=== PATIENT | female | born 1975 | race Native Hawaiian/Other Pacific Islander ===

== ENCOUNTER 2021-12-21 08:16 | Emergency (ER) | payer MEDICAID, SELFPAY ==
[2021-12-21 08:19] VITALS: BP 130/88; PULSE 98; O2SAT 98
[2021-12-21 08:23] VITALS: BP 136/93; PULSE 72; RESP 17; TEMP 36.6; O2SAT 100; BMI 28.1
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
[2021-12-21] MEDS: Ibuprofen 600 MG TABLET PO (09:00)
== END 2021-12-21 09:10 | disposition home or self-care (01) ==
PROVIDERS: Emergency Provider Emergency Medicine Emergency Medical Services; PCP Nurse Practitioner Primary Care
DX: S23.9XXA Sprain of unspecified parts of thorax, initial encounter (principal); S33.5XXA Sprain of ligaments of lumbar spine, initial encounter; V43.52XA Car driver injured in collision with other type car in traffic accident, initial encounter; Y93.9 Activity, unspecified; Y92.410 Unspecified street and highway as the place of occurrence of the external cause; Y99.9 Unspecified external cause status; Z79.899 Other long term (current) drug therapy
CPT/HCPCS: 99283

== ENCOUNTER 2022-01-15 10:29 | Emergency (ER) | payer MEDICAID, SELFPAY ==
[2022-01-15 10:36] VITALS: BP 126/87; PULSE 87; RESP 18; TEMP 36.9; O2SAT 98; BMI 25.0
--- NOTE | 2022-01-15 10:51 | ED_ITS ---
HPI - Back Pain/Injury General Chief Complaint: Back Pain/Injury Stated Complaint: Lower back pain Time Seen by Provider: 01/15/22 10:50 Source: patient Mode of arrival: ambulatory History of Present Illness HPI Narrative: 46-year-old female with no significant past medical history presenting to the ED complaining of acute low back pain greater on the right s/p picking up heavy laundry basket last night. Denies direct injury/trauma, fall, numbness, tingling, weakness, urine incontinence/retention, fever. Used lidocaine patch with little relief MD elicited complaint: back pain Pertinent past history: prior back pain Onset (ago): day(s) Related Data Previous Rx's Medication Instructions Recorded acetaminophen 500 mg tablet 1,000 mg PO Q6H PRN fever or pain 12/21/21 (Tylenol Extra Strength) #20 tabs cyclobenzaprine 10 mg tablet 10 mg PO TID PRN muscle pain or 12/21/21 spasm #20 tabs ibuprofen 600 mg tablet 600 mg PO Q6H PRN pain #30 tabs 12/21/21 acetaminophen 500 mg tablet 500 mg PO Q6H PRN fever or pain 01/15/22 (Tylenol Extra Strength) #14 tabs cyclobenzaprine 5 mg tablet 5 mg PO Q8H PRN pain (scale score 01/15/22 7-10) 5 days #14 tabs lidocaine 5 % topical patch 1 patch topical DAILY PRN pain #30 01/15/22 (Lidoderm) ea naproxen 500 mg tablet 500 mg PO BID PRN pain 10 days #20 01/15/22 tabs Allergies Allergy/AdvReac Type Severity Reaction Status Date / Time No Known Allergies Allergy Unverified 12/31/19 16:27 Review of Systems Review of Systems: Constitutional: No Fever, No Chills ENT/Mouth: No Ear Pain, No Nasal Congestion, No sore throat, No Rhinorrhea, No Swallowing Difficulty Cardiovascular: No Chest Pain, No SOB Respiratory: No Cough, No Sputum Gastrointestinal: No Nausea, No Vomiting, No Diarrhea, No Constipation, No Abdominal pain Genitourinary: No Dysuria, No Urinary Frequency, No Hematuria, No Urinary Incontinence/retention, No Flank Pain Musculoskeletal: + joint pain, No Myalgias, No Joint Swelling Skin: No Skin Lesions, No rash Neuro: No Weakness, No Numbness, No Paresthesias Yes all other systems are reviewed and are negative Constitutional: Constitutional: Reports as per HPI Neurologic: Denies Sensory deficit (Neuro) [facility] Past Medical History Attestation statement: The following information was validated with the patient. Surgical History Status post bunionectomy Family History Family History Father Cancer Mother Cancer Social History Social History Advance Directives: No Advance Directives Information Provided: No Physical Exam Vital Signs: Vital Signs: Last Vital Signs Temp 98.5 F 01/15/22 10:36 Pulse 87 01/15/22 10:36 Resp 18 01/15/22 10:36 BP 126/87 01/15/22 10:36 Pulse Ox 98 01/15/22 10:36 O2 Del Method 01/15/22 10:36 BMI result Body Mass Index 25.0 Const: General: cooperative, healthy appearing and no acute distress Orientation/consciousness: patient oriented x3 Limitations: no limitations HEENT: Head: Yes normal to inspection and Yes atraumatic Ears: hearing grossly normal bilaterally General nose exam: Normal external nose present Face and sinus: Yes normal facial exam Eyes: General: appearance normal, both eyes and all related structures EOM: EOMs intact bilaterally Neck: Neck: Yes normal visual inspection and Yes no meningeal signs Resp: Effort & Inspection: normal respiratory effort and no respiratory distress Cardio: Rate: regular rate Heart sounds: S1 normal heart sound present and S2 normal heart sound present GI: Inspection: Yes normal to inspection Palpation (GI): Soft to palpation, not firm, nontender, no guarding and not rigid : General: Yes no CVA tenderness Back/Spine/Pelvis: Other: No midline thoracic/lumbar spinous tenderness/step-off or deformity. + bilateral lumbar paraspinal/MSK tenderness to palpation > right Back: no CVA tenderness Skin: Rashes: no rashes Wounds: no wounds Neuro: Other: Strength intact throughout. No saddle anesthesia. Sensation intact to light touch. Neurovascular intact distally General: patient oriented x3, tone normal, moves all extremities, no meningeal signs and no focal motor deficits Gait exam (Neuro): Normal gait present Motor exam (neuro): 5/5 motor strength present throughout Sensory Exam: No Sensory deficit (Neuro) Extrem: General: Yes normal to inspection MDM - Back Pain/Injury MDM Narrative Medical decision making narrative: 6-year-old female with no significant past medical history presenting to the ED complaining of acute low back pain greater on the right s/p picking up heavy laundry basket last night. On exam VSS, NAD, nontoxic appearing, no midline spinous tenderness throughout, no red flag symptoms, pain reproducible on exam, ambulating with steady gait. Concern for MSK pain/strain/sciatica vs ? Herniat ed disc. Low suspicion for pyelonephritis/renal stone, epidural abscess or cauda equina Plan: Pain management, PCP follow-up Differential Diagnosis Differential diagnosis: Likely lumbar radiculopathy, sciatica and strain of lumbar region Medical Records Attestation: I reviewed the patient's medical records. Lab Data Attestation: I reviewed the patient's lab results. Discharge Plan Discharge Clinical Impression: Strain of lumbar region Patient Disposition: Home, Self-Care Instructions: Acute Low Back Pain (ED) Additional Instructions: Your pain is likely musculoskeletal Flexeril is a muscle relaxer, take at night as it makes you drowsy, do not drive, drink alcohol, or operate machinery while taking it Naproxen as an anti-inflammatory / pain medication, take with food Lidoderm patches are numbing patches, apply to painful area In addition take Tylenol at home If symptoms persist or worsen, pain becomes unbearable, you developed urinary retention or incontinence, or weakness return to the ED Prescriptions: New acetaminophen [Tylenol Extra Strength] 500 mg tablet 500 mg PO Q6H PRN (Reason: fever or pain) Qty: 14 0RF lidocaine [Lidoderm] 5 % adhesive patch,medicated 1 patch topical DAILY MDD remove after 12 hours PRN (Reason: pain) Qty: 30 0RF Rx Instructions: leave on most painful area for up to 12 hrs naproxen 500 mg tablet 500 mg PO BID PRN (Reason: pain) 10 Days Qty: 20 0RF cyclobenzaprine 5 mg tablet 5 mg PO Q8H PRN (Reason: pain (scale score 7-10)) 5 Days Qty: 14 0RF No Action acetaminophen [Tylenol Extra Strength] 500 mg tablet 1,000 mg PO Q6H PRN (Reason: fever or pain) Qty: 20 0RF ibuprofen 600 mg tablet 600 mg PO Q6H PRN (Reason: pain) Qty: 30 0RF cyclobenzaprine 10 mg tablet 10 mg PO TID PRN (Reason: muscle pain or spasm) Qty: 20 0RF Referrals: Brianna Perez, HEARING AIDE TECHNICIAN [Primary Care Provider] - 5 days
[2022-01-15] MEDS: Ketorolac Tromethamine 30 MG/ML VIAL IM (11:10)
[2022-01-15] MEDS: Cyclobenzaprine HCl 10 MG TABLET PO (11:11)
== END 2022-01-15 11:26 | disposition home or self-care (01) ==
PROVIDERS: Emergency Provider Emergency Medicine; PCP Nurse Practitioner Primary Care
DX: S39.012A Strain of muscle, fascia and tendon of lower back, initial encounter (principal); X50.0XXA Overexertion from strenuous movement or load, initial encounter; Y93.E2 Activity, laundry; Y92.018 Other place in single-family (private) house as the place of occurrence of the external cause; Y99.9 Unspecified external cause status
CPT/HCPCS: 96372; 99283; 99284; J1885

== ENCOUNTER 2023-05-26 11:08 | Emergency (ER) | payer MEDICAID, SELFPAY ==
--- NOTE | ~2023-05-26 | XR_ITS ---
EXAMINATION: XR ABDOMEN KUB CLINICAL INDICATION: Small bowel obstruction. Constipation. COMPARISON: None available. TECHNIQUE: 2 AP supine radiographs of the abdomen pelvis. FINDINGS: A prominent quantity of stool is present throughout the colon. No gross free intraperitoneal gas identified. The visualized lung bases are clear. Scattered pelvic phleboliths are incidentally noted. No pneumatosis intestinalis noted. No portal venous gas visualized. XR/XR KUB IMPRESSION: Marked colonic stool burden. No intestinal dilatation to specifically suggest obstruction. Findings may represent constipation.
[2023-05-26 11:29] VITALS: BP 121/94; PULSE 115; RESP 18; TEMP 35.8; O2SAT 98
--- NOTE | 2023-05-26 11:33 | ED.GENADULT ---
HPI - General Adult General Chief complaint: Abdominal Pain Stated complaint: Constipated Time Seen by Provider: 05/26/23 13:03 Source: patient Mode of arrival: ambulatory Limitations: no limitations History of Present Illness HPI narrative: 47-year-old female history of hypertension, depression, anxiety, thyroid cancer status post thyroidectomy on thyroid replacement who presents emergency department for evaluation severe constipation. Patient states that last month she developed constipation for the 1st time. She states that prior to that she had regular bowel movements. Patient was started on 2 medications by her PCP (stool softener and laxative) which have not help. Patient states that she has had no bowel movement since Saturday (4 days prior to evaluation). She states she is only passing very small hard john of stool. She states she feels very bloated and is having diffuse moderate to severe abdominal pain. She denied nausea or vomiting. She denied fever, chills, chest pain or shortness of breath. Patient has no abdominal surgery history. There has been no significant change in her medications or in her diet. Related Data Previous Rx's Medication Instructions Recorded cyclobenzaprine 10 mg tablet 5 mg (1/2 x 10 mg) PO BEDTIME PRN 01/15/22 muscle spasm #14 tabs lidocaine 5 % topical patch 1 patch topical DAILY PRN pain #15 01/15/22 ea naproxen 500 mg tablet 500 mg PO BID PRN pain #14 tabs 01/15/22 lactulose 10 gram/15 mL (15 mL) 10 g (15 mL) PO BID PRN 05/26/23 oral solution constipation #600 mL Allergies Allergy/AdvReac Type Severity Reaction Status Date / Time No Known Allergies Allergy Verified 05/26/23 11:29 Review of Systems Review of Systems: Yes all other systems are reviewed and are negative [facility] Past [facility] History [facility] Narrative: Social history: She denies tobacco, alcohol and drug use. Surgical History Status post bunionectomy Family History Family History Father Cancer Mother Cancer Social History Social History Advance Directives: No Advance Directives Information Provided: Yes Physical Exam ED Vital Signs: Vital Signs - 24 hr 05/26/23 11:29 05/26/23 15:40 Temperature 96.5 F L 98.9 F Pulse Rate 115 H 74 Respiratory Rate 18 16 Blood Pressure 121/94 H 130/76 Pulse Oximetry 98 99 Oxygen Delivery Method Room Air Room Air BMI result Body Mass Index 30.0 Vital signs revealed an elevated heart rate of 115 otherwise unremarkable Exam General: Awake, alert in no distress Head: Normocephalic, atraumatic EENT: PERRL, Lids normal, sclera normal, conjunctiva normal, nose normal , ears normal, throat without erythema or exudates Neck: Supple, no adenopathy Lung: breath sounds symmetric, no wheezing, rales or rhonchi Chest: symmetric movement, nontender Heart: regular rate and rhythm, normal S1, S2 no murmurs or rubs Abdomen: soft, distended, normoactive bowel sounds, moderate diffuse tenderness Rectal: Hard impacted stool, brown, Hemoccult-negative Back: no vertebral tenderness, no CVAT Neuro: Awake, alert, oriented, normal speech, moves all extremities symmetrically Psych: Pleasant, cooperative Course Course Course Narrative: RME; 47-year-old female presents to ED for constipation since Saturday. Patient states 1st time being constipated. Patient states some nausea. Patient denies any history of any surgery. Patient states in perimenopause. Patient last saw her menstruation 2 years ago. Labs, hCG, KUB ordered Procedures Rectal Disimpaction Time out performed rectal disimpaction: No Indication: fecal impaction Procedural Sedation: No Sedation/Analgesia: none Technique: manual disimpaction with gloved finger Result: significant stool output (After disimpaction and soapsuds enema) Patient Tolerated Procedure: well Complications: none Medical Decision Making Medical Decision Making [facility] Narrative: 47-year-old female history of hypertension, depression, anxiety, thyroid cancer status post thyroidectomy on thyroid replacement who presents emergency department for evaluation severe constipation. Patient has had no bowel movement in 4 days. Vital signs were normal. Physical examination did reveal abdominal distention with diffuse abdominal tenderness, rectal exam revealed hard impacted stool. Differential diagnosis: Includes was not limited to bowel obstruction, obstipation , constipation, diverticulitis, pancreatitis Following evaluation was ordered: CBC, CMP, quantitative beta-hCG, lipase, urinalysis Patient was treated with the following: Manual disimpaction, soapsuds enema 17:10 My independent interpretation patient's laboratory evaluation is as follows: CBC was normal. Glucose elevated 124. LFTs normal. Quantitative beta-hCG below detectable limits. At the end of my shift, the patient's enema has just been completed and she has not had a bowel movement yet, therefore the patient's care was turned over to my colleague, Dr. Lawson The patient had a significant bowel movement and is feeling better. Therefore she was discharged home. Admission/Observation Consideration of admission/observation: Escalation of care including admission/observation considered Lab Data MDM Lab Attestation statement: I reviewed the patient's lab results. 05/26/23 11:36 05/26/23 11:36 Labs: Lab Results 05/26/23 Range/Units 11:36 WBC 10.5 (4.8-10.8) X10*3/uL RBC 3.93 L (4.20-5.50) X10*6/uL Hgb 12.3 (12.0-16.0) g/dl Hct 36.1 L (37.0-47.0) % MCV 91.9 (80.0-98.0) fL MCH 31.3 (27.0-33.0) pg MCHC 34.1 (31.0-35.0) g/dl RDW 13.3 (11.0-16.0) % Plt Count 295 (160-400) X10*3/uL MPV 9.8 (9.4-12.3) fL Immature Gran % (Auto) 0.3 (0.0-0.4) % Neut % (Auto) 83.9 H (45-73) % Lymph % (Auto) 12.0 L (20-40) % [place] % (Auto) 3.3 (2-11) % Eos % (Auto) 0.2 (0-4) % Baso % (Auto) 0.3 (0-2) % Lymph # (Auto) 1.3 (1.2-4.9) X10*3/uL [place] # (Auto) 0.4 (0.1-1.2) X10*3/uL Eos # (Auto) 0.0 (0.0-0.4) X10*3/uL Baso # (Auto) 0.0 (0.0-0.2) X10*3/uL Abs Immat Gran (auto) 0.03 (0.00-0.03) X10*3/uL Absolute Neuts (auto) 8.8 H (2.0-8.3) x10*3/uL Absolute Nucleated RBC 0.000 (0.0-0.012) X10*3/uL Nucleated RBC % (auto) 0.0 (0.0-0.2) /100WBC Sodium 139 (135-145) mmol/L Potassium 4.0 (3.3-5.1) mmol/L Chloride 104 (96-108) mmol/L Carbon Dioxide 24 (22-29) mmol/L Anion Gap 15 (12-20) BUN 9 (9-16) mg/dL Creatinine 1.39 (0.5-1.4) mg/dL Estim Creat Clear Calc 59.8 Estimated GFR 41 Random Glucose 124 H (60-115) mg/dL Calcium 9.4 (8.4-10.2) mg/dL Total Bilirubin 0.4 (0.0-1.0) mg/dL AST 27 (5-31) U/L ALT 18 (0-31) U/L Alkaline Phosphatase 103 (39-117) U/L Total Protein 8.8 H (6.5-8.0) g/dL Albumin 4.5 (3.5-5.0) g/dL Lipase 22 (8-78) U/L Beta HCG, Quant < 2 mIU/mL Independent Interpretation I performed an independent interpretation of an: Plain X-Ray Interpretation: My independent interpretation of the patient's one-view KUB is as follows: Patient has stool in the right transverse and descending colon with a paucity of gas in the colon. Radiology Impression Discussion of test interpretation with radiology: I have reviewed the radiologist's reading. Radiologist Impression: XR KUB IMPRESSION: Marked colonic stool burden. No intestinal dilatation to specifically suggest obstruction. Findings may represent constipation. Dictated By: Avila Ziegler MD Chronic Conditions Patient?s care impacted by: Hypertension Discharge Plan Discharge Clinical Impression: Constipation, Fecal impaction in rectum Patient Disposition: Home, Self-Care Instructions: Constipation (ED) Additional Instructions: Your laboratory evaluation was unremarkable. Your x-ray was consistent with severe constipation. Your rectal exam revealed hard stool which was impacting rectum and making it difficult for you to move your bowels. You were treated with a soapsuds enema. Take Metamucil 1 tsp in 8 oz of water daily for the next 2 weeks. Continue your stool softener as prescribed by your primary care doctor. If you are feeling constipated, take lactulose 15 mL every 12 hours for 2-4 days Follow-up with your doctor in 2 days. Please return to the emergency department if your symptoms get worse or if you develop any symptoms that are concerning to you. Prescriptions: New lactulose 10 gram/15 mL (15 mL) solution 10 g PO BID PRN (Reason: constipation) Qty: 600 0RF No Action cyclobenzaprine 10 mg tablet 5 mg PO BEDTIME PRN (Reason: muscle spasm) Qty: 14 0RF lidocaine 5 % adhesive patch,medicated 1 patch topical DAILY PRN (Reason: pain) Qty: 15 0RF Rx Instructions: leave on most painful area for up to 12 hrs naproxen 500 mg tablet 500 mg PO BID PRN (Reason: pain) Qty: 14 0RF Rx Instructions: Take with food Interventions: ED Discharge Assessment Last Done: 05/26/23 17:33 Discharge Date/Time: 05/26/23 17:49
[2023-05-26 11:41] LABS: MANUAL DIFF FLAG NO
[2023-05-26 11:44] LABS: Basophils Percent Auto 0.3 % (0-2); Eosinophils Percent Auto 0.2 % (0-4); Hematocrit 36.1 % (37.0-47.0); Hemoglobin 12.3 g/dl (12.0-16.0); Imm Gran Abs Auto 0.03 X10*3/uL (0.00-0.03); Imm Gran Pct Auto 0.3 % (0.0-0.4); Lymphocytes Absolute Auto 1.3 X10*3/uL (1.2-4.9); Mean Corpuscular HGB Conc 34.1 g/dl (31.0-35.0); Mean Corpuscular Hemoglobin 31.3 pg (27.0-33.0); Mean Corpuscular Volume 91.9 fL (80.0-98.0); Mean Platelet Volume 9.8 fL (9.4-12.3); Monocytes Absolute Auto 0.4 X10*3/uL (0.1-1.2); Monocytes Percent Auto 3.3 % (2-11); Neutrophils Absolute Auto 8.8 x10*3/uL (2.0-8.3); Neutrophils Percent Auto 83.9 % (45-73); Platelet Count 295 X10*3/uL (160-400); Red Blood Count 3.93 X10*6/uL (4.20-5.50); Red Cell Distribution Width 13.3 % (11.0-16.0); White Blood Count 10.5 X10*3/uL (4.8-10.8)
[2023-05-26 12:02] LABS: Alanine Aminotransferase 18 U/L (0-31); Albumin Level 4.5 g/dL (3.5-5.0); Alkaline Phosphatase 103 U/L (39-117); Anion Gap 15 (12-20); Aspartate Amino Transferase 27 U/L (5-31); Bilirubin Total 0.4 mg/dL (0.0-1.0); Blood Urea Nitrogen 9 mg/dL (9-16); Calcium 9.4 mg/dL (8.4-10.2); Carbon Dioxide 24 mmol/L (22-29); Chloride 104 mmol/L (96-108); Creatinine Clr Calc Pharmacy 59.8; Estimated Glomerular Filt Rate 41; Glucose Random 124 mg/dL (60-115); Lipase 22 U/L (8-78); Sodium 139 mmol/L (135-145); Total Protein 8.8 g/dL (6.5-8.0)
[2023-05-26 12:03] LABS: HCG Quantitative < 2 mIU/mL
--- NOTE | 2023-05-26 15:23 | MHC.EDTECH ---
Brought patient a cup of ice water and saltine crackers.
[2023-05-26 15:40] VITALS: BP 130/76; PULSE 74; RESP 16; TEMP 37.2; O2SAT 99
--- NOTE | 2023-05-26 16:30 | PC.NURSE ---
Soapsud enema given as ordered, pt tolerated well. Bedside commode and wipes in close reach.
--- NOTE | 2023-05-26 17:47 | PC.NURSE ---
Postitive effect from somalcolms enema.
== END 2023-05-26 17:49 | disposition home or self-care (01) ==
PROVIDERS: Physician Assistant; Emergency Provider Emergency Medicine Emergency Medical Services; PCP Nurse Practitioner Primary Care
DX: K59.00 Constipation, unspecified (principal); Z79.899 Other long term (current) drug therapy
CPT/HCPCS: 36415; 74018; 80053; 83690; 84702; 85025; 99284

== ENCOUNTER 2023-08-09 10:27 | Emergency (ER) | payer MEDICAID, SELFPAY ==
--- NOTE | ~2023-08-09 | XR_ITS ---
EXAMINATION: XR CHEST CLINICAL INFORMATION: Shortness of breath and cough COMPARISON: 01/16/2019 TECHNIQUE: 2 views. Findings; Opacities the right base consistent with infiltrate. Minimal change at the left base. The mid-upper lung zones are grossly clear. The cardiac silhouette is comparable. Nonvisualization of the right heart border is similar to previous. The hilar regions do not appear pathologically enlarged. There is no effusion. XR/XR chest 2V IMPRESSION: Right greater than left lower lobe areas of infiltrate/atelectasis
--- NOTE | 2023-08-09 10:29 | ECG_ITS ---
Test Reason : chest pain Blood Pressure : / mmHG Vent. Rate : 092 BPM Atrial Rate : 092 BPM P-R Int : 172 ms QRS Dur : 080 ms QT Int : 352 ms P-R-T Axes : 037 053 038 degrees QTc Int : 435 ms Normal sinus rhythm Low voltage QRS Cannot rule out Inferior infarct , age undetermined Cannot rule out Anterior infarct , age undetermined Abnormal ECG No previous ECGs available Referred By: Generic ED Physician Electronically Signed By:SOL DEMPSEY MD
--- NOTE | 2023-08-09 11:19 | ED_ITS ---
HPI - General Adult General Chief complaint: Upper Respiratory Symptoms Stated complaint: CP Time Seen by Provider: 08/09/23 13:31 Source: patient Mode of arrival: ambulatory Limitations: no limitations History of Present Illness HPI narrative: note written already written in other note document. Related Data Previous Rx's ?Medication ?Instructions ?Recorded cyclobenzaprine 10 mg tablet 5 mg (1/2 x 10 mg) PO BEDTIME PRN 01/15/22 muscle spasm #14 tabs lidocaine 5 % topical patch 1 patch topical DAILY PRN pain #15 01/15/22 ea naproxen 500 mg tablet 500 mg PO BID PRN pain #14 tabs 01/15/22 lactulose 10 gram/15 mL (15 mL) 10 g (15 mL) PO BID PRN 05/26/23 oral solution constipation #600 mL amoxicillin 875 mg-potassium 1 tab PO Q12H 5 days #10 tabs 08/09/23 clavulanate 125 mg tablet benzonatate 200 mg capsule 200 mg PO TID PRN cough 5 days #15 08/09/23 caps doxycycline hyclate 100 mg capsule 100 mg PO BID 7 days #14 caps 08/09/23 Allergies Allergy/AdvReac Type Severity Reaction Status Date / Time No Known Allergies Allergy Verified 08/09/23 11:24 [facility] Past Medical History Surgical History Status post bunionectomy Family History Family History Father Cancer Mother Cancer Social History Social History Advance Directives: No Advance Directives Information Provided: No Physical Exam ED Vital Signs: Vital Signs - 24 hr 08/09/23 14:23 Temperature 97.9 F Pulse Rate 91 Respiratory Rate 18 Blood Pressure 143/92 H Pulse Oximetry 95 Oxygen Delivery Method Room Air BMI result Body Mass Index 31.2 Course Course Course Narrative: RME performed by Renetta Willis PA-C. Patient is a 47 year old assigned female at presenting to the emergency department with a cough and chest pain. Detailed physical exam and review of systems are deferred to the primary care provider. Labs, imaging, and swabs ordered. Patient placed back in the waiting room pending room availability and results. Patient was seen and dispositioned by Robbie Talley PA-C. Please refer to his note from 08/10/2023. Medical Decision Making Lab Data 08/09/23 12:24 08/09/23 12:24 Labs: Lab Results 08/09/23 Range/Units 12:24 WBC 6.6 (4.8-10.8) X10*3/uL RBC 3.73 L (4.20-5.50) X10*6/uL Hgb 11.6 L (12.0-16.0) g/dl Hct 35.2 L (37.0-47.0) % MCV 94.4 (80.0-98.0) fL MCH 31.1 (27.0-33.0) pg MCHC 33.0 (31.0-35.0) g/dl RDW 13.4 (11.0-16.0) % Plt Count 248 (160-400) X10*3/uL MPV 9.7 (9.4-12.3) fL Immature Gran % (Auto) 0.5 H (0.0-0.4) % Neut % (Auto) 62.7 (45-73) % Lymph % (Auto) 28.3 (20-40) % [place] % (Auto) 6.5 (2-11) % Eos % (Auto) 1.7 (0-4) % Baso % (Auto) 0.3 (0-2) % Lymph # (Auto) 1.9 (1.2-4.9) X10*3/uL [place] # (Auto) 0.4 (0.1-1.2) X10*3/uL Eos # (Auto) 0.1 (0.0-0.4) X10*3/uL Baso # (Auto) 0.0 (0.0-0.2) X10*3/uL Abs Immat Gran (auto) 0.03 (0.00-0.03) X10*3/uL Absolute Neuts (auto) 4.1 (2.0-8.3) x10*3/uL Absolute Nucleated RBC 0.000 (0.0-0.012) X10*3/uL Nucleated RBC % (auto) 0.0 (0.0-0.2) /100WBC PT 10.8 L (11.1-13.3) SEC INR 0.9 (0.9-1.1) APTT 33.4 (26.0-36.8) SEC Sodium 141 (135-145) mmol/L Potassium 4.0 (3.3-5.1) mmol/L Chloride 100 (96-108) mmol/L Carbon Dioxide 32 H (22-29) mmol/L Anion Gap 13 (12-20) BUN 7 L (9-16) mg/dL Creatinine 1.22 (0.5-1.4) mg/dL Estim Creat Clear Calc 67.2 Estimated GFR 48 Random Glucose 114 (60-115) mg/dL Calcium 9.9 (8.4-10.2) mg/dL Magnesium 2.2 (1.6-2.6) mg/dL Total Bilirubin 0.2 (0.0-1.0) mg/dL AST 18 (5-31) U/L ALT 14 (0-31) U/L Alkaline Phosphatase 94 (39-117) U/L Troponin I High Sens < 2.7 (<3.5-17.0) ng/L Total Protein 8.6 H (6.5-8.0) g/dL Albumin 4.4 (3.5-5.0) g/dL Influenza Type A (PCR) NEGATIVE (Negative) Influenza Type B (PCR) NEGATIVE (Negative) RSV RNA Qual (PCR) NEGATIVE (Negative) SARS-CoV-2 RNA (RT-PCR) NEGATIVE (Negative) Discharge Plan Discharge Clinical Impression: Upper respiratory infection Patient Disposition: Home, Self-Care Instructions: Community Acquired Pneumonia (ED) Additional Instructions: your x-ray shows pneumonia. You will be discharged with antibiotics and cough medication. Recommend follow-up with your primary care provider. Return to the ED for chest pain, shortness of breath, coughing up blood, chest pain / shortness of breath on inspiration and on exertion, leg swelling, calf pain, weakness, fever, chills, or any other concerning symptoms. Prescriptions: New doxycycline hyclate 100 mg capsule 100 mg PO BID 7 Days Qty: 14 0RF amoxicillin-pot clavulanate 875-125 mg tablet 1 tab PO Q12H 5 Days Qty: 10 0RF benzonatate 200 mg capsule 200 mg PO TID PRN (Reason: cough) 5 Days Qty: 15 0RF No Action cyclobenzaprine 10 mg tablet 5 mg PO BEDTIME PRN (Reason: muscle spasm) Qty: 14 0RF lidocaine 5 % adhesive patch,medicated 1 patch topical DAILY PRN (Reason: pain) Qty: 15 0RF Rx Instructions: leave on most painful area for up to 12 hrs naproxen 500 mg tablet 500 mg PO BID PRN (Reason: pain) Qty: 14 0RF Rx Instructions: Take with food lactulose 10 gram/15 mL (15 mL) solution 10 g PO BID PRN (Reason: constipation) Qty: 600 0RF Stand Alone Forms: Work/School Release Interventions: ED Discharge Assessment Last Done: 08/09/23 14:23 Discharge Date/Time: 08/09/23 14:26 Print Language: Sinhala
[2023-08-09 11:20] VITALS: BP 138/85; PULSE 90; RESP 16; TEMP 36.9; O2SAT 95; BMI 31.2
[2023-08-09 12:29] LABS: MANUAL DIFF FLAG NO
[2023-08-09 12:32] LABS: Basophils Percent Auto 0.3 % (0-2); Eosinophils Absolute Auto 0.1 X10*3/uL (0.0-0.4); Eosinophils Percent Auto 1.7 % (0-4); Hematocrit 35.2 % (37.0-47.0); Hemoglobin 11.6 g/dl (12.0-16.0); Imm Gran Abs Auto 0.03 X10*3/uL (0.00-0.03); Imm Gran Pct Auto 0.5 % (0.0-0.4); Lymphocytes Absolute Auto 1.9 X10*3/uL (1.2-4.9); Lymphocytes Percent Auto 28.3 % (20-40); Mean Corpuscular Hemoglobin 31.1 pg (27.0-33.0); Mean Corpuscular Volume 94.4 fL (80.0-98.0); Mean Platelet Volume 9.7 fL (9.4-12.3); Monocytes Absolute Auto 0.4 X10*3/uL (0.1-1.2); Monocytes Percent Auto 6.5 % (2-11); Neutrophils Absolute Auto 4.1 x10*3/uL (2.0-8.3); Neutrophils Percent Auto 62.7 % (45-73); Platelet Count 248 X10*3/uL (160-400); Red Blood Count 3.73 X10*6/uL (4.20-5.50); Red Cell Distribution Width 13.4 % (11.0-16.0); White Blood Count 6.6 X10*3/uL (4.8-10.8)
[2023-08-09 12:44] LABS: INTERNATIONAL NORM RATIO 0.9 (0.9-1.1); Prothrombin Time 10.8 SEC (11.1-13.3)
[2023-08-09 12:46] LABS: Partial Thromboplastin Time 33.4 SEC (26.0-36.8)
[2023-08-09 12:47] LABS: Alanine Aminotransferase 14 U/L (0-31); Albumin Level 4.4 g/dL (3.5-5.0); Alkaline Phosphatase 94 U/L (39-117); Anion Gap 13 (12-20); Aspartate Amino Transferase 18 U/L (5-31); Bilirubin Total 0.2 mg/dL (0.0-1.0); Blood Urea Nitrogen 7 mg/dL (9-16); Calcium 9.9 mg/dL (8.4-10.2); Carbon Dioxide 32 mmol/L (22-29); Chloride 100 mmol/L (96-108); Creatinine Clr Calc Pharmacy 67.2; Estimated Glomerular Filt Rate 48; Glucose Random 114 mg/dL (60-115); Magnesium 2.2 mg/dL (1.6-2.6); Sodium 141 mmol/L (135-145); Total Protein 8.6 g/dL (6.5-8.0)
[2023-08-09 12:56] LABS: Troponin-I High Sensitivity < 2.7 ng/L (<3.5-17.0)
[2023-08-09 13:09] LABS: Influenza A PCR NEGATIVE (Negative); Influenza B PCR NEGATIVE (Negative); Resp Syncy Virus RNA Qual PCR NEGATIVE (Negative); SARS COV2 PCR INHOUSE NEGATIVE (Negative)
--- NOTE | 2023-08-09 14:01 | ED_ITS ---
HPI - General Adult General Chief complaint: Upper Respiratory Symptoms Stated complaint: CP Time Seen by Provider: 08/09/23 13:31 Source: patient Mode of arrival: ambulatory Limitations: no limitations History of Present Illness HPI narrative: 47 yold female with pmh of asthma presents to the ED for coughing with white pelghm, chills, and pleurisy. patient denies any recent long travel, recent surgery, leg swelling, calf pain, coughing up blood, control use, or any history of PE Related Data Previous Rx's ?Medication ?Instructions ?Recorded cyclobenzaprine 10 mg tablet 5 mg (1/2 x 10 mg) PO BEDTIME PRN 01/15/22 muscle spasm #14 tabs lidocaine 5 % topical patch 1 patch topical DAILY PRN pain #15 01/15/22 ea naproxen 500 mg tablet 500 mg PO BID PRN pain #14 tabs 01/15/22 lactulose 10 gram/15 mL (15 mL) 10 g (15 mL) PO BID PRN 05/26/23 oral solution constipation #600 mL amoxicillin 875 mg-potassium 1 tab PO Q12H 5 days #10 tabs 08/09/23 clavulanate 125 mg tablet benzonatate 200 mg capsule 200 mg PO TID PRN cough 5 days #15 08/09/23 caps doxycycline hyclate 100 mg capsule 100 mg PO BID 7 days #14 caps 08/09/23 Allergies Allergy/AdvReac Type Severity Reaction Status Date / Time No Known Allergies Allergy Verified 08/09/23 11:24 Review of Systems 2 Review of Systems: coughing, chills, pleurisy, body aches Yes all other systems are reviewed and are negative PMF Past Medical History Surgical History Status post bunionectomy Family History Family History Father Cancer Mother Cancer Social History Social History Advance Directives: No Advance Directives Information Provided: No Physical Exam ED Vital Signs: Vital Signs - 24 hr 08/09/23 11:20 Temperature 98.4 F Pulse Rate 90 Respiratory Rate 16 Blood Pressure 138/85 Pulse Oximetry 95 Oxygen Delivery Method Room Air BMI result Body Mass Index 31.2 Const General: cooperative, healthy appearing, comfortable, no acute distress, well developed, alert, awake and Physically active Orientation/consciousness: oriented to person, oriented to place, oriented to time and patient oriented x3 HENMT Head: Yes normal to inspection, Yes No palpable skull fracture present, Yes normocephalic, Yes atraumatic and No abrasion Ears: hearing grossly normal bilaterally, external ears normal, TM's normal bilaterally, TM normal on the right, TM normal on the left, EAC's normal, mastoids normal and no periauricular adenopathy Throat: Yes posterior oropharynx normal, Yes tonsils normal and Yes uvula midline Eyes General: appearance normal, both eyes and all related structures Neck Neck: Yes normal visual inspection, Yes full ROM, Yes no lymphadenopathy, Yes no meningeal signs, Yes trachea midline, Yes supple, No anterior neck swelling and No tender Chest Chest palpation & inspection: normal inspection of the chest and normal palpation of entire chest wall Resp Effort & Inspection: normal respiratory effort and able to speak in complete sentences Auscultation: clear to auscultation bilaterally Cardio Jugular venous distension: no JVD Heart sounds: S1 normal heart sound present and S2 normal heart sound present GI Inspection: Yes normal to inspection Palpation (GI): Soft to palpation, not firm, nontender, no guarding and not rigid General: No CVA tenderness and Yes no CVA tenderness Back/Spine/Pelvis Back: no CVA tenderness, No CVA tenderness and No back tenderness Skin General skin exam: no rashes or lesions noted, elasticity normal and turgor normal Neuro General: oriented to person, oriented to place, oriented to time, patient oriented x3, gait normal, tone normal, moves all extremities, Normal light touch and pain sensation, no meningeal signs, no focal motor deficits, CN's II-XI intact bilaterally and normal sensation to monofilament Extrem Other: bilateral lower extremity negative for swelling, pitting edema, or calf tenderness General: Yes normal to inspection, Yes full ROM and Yes capillary refill normal Psych Appearance: grossly normal, well kempt and not disheveled Medical Decision Making Medical Decision Making MDM Narrative: 47-year-old female presents to ED for coughing, white phlegm cough, body aches, chills, and right-sided pleurisy, chest x-ray shows pneumonia. Labs baseline. EKG negative STEMI. Patient will be discharged with antibiotics informed to follow up with primary care provider. Patient explained worrisome signs. Differential Diagnosis Differential Diagnoses: The differential diagnosis associated with the presentation includes ( pneumonia, asthma, COVID, SARS, influenza) Lab Data MDM Lab Attestation statement: I reviewed the patient's lab results. 08/09/23 12:24 08/09/23 12:24 Labs: Lab Results 08/09/23 Range/Units 12:24 WBC 6.6 (4.8-10.8) X10*3/uL RBC 3.73 L (4.20-5.50) X10*6/uL Hgb 11.6 L (12.0-16.0) g/dl Hct 35.2 L (37.0-47.0) % MCV 94.4 (80.0-98.0) fL MCH 31.1 (27.0-33.0) pg MCHC 33.0 (31.0-35.0) g/dl RDW 13.4 (11.0-16.0) % Plt Count 248 (160-400) X10*3/uL MPV 9.7 (9.4-12.3) fL Immature Gran % (Auto) 0.5 H (0.0-0.4) % Neut % (Auto) 62.7 (45-73) % Lymph % (Auto) 28.3 (20-40) % [place] % (Auto) 6.5 (2-11) % Eos % (Auto) 1.7 (0-4) % Baso % (Auto) 0.3 (0-2) % Lymph # (Auto) 1.9 (1.2-4.9) X10*3/uL [place] # (Auto) 0.4 (0.1-1.2) X10*3/uL Eos # (Auto) 0.1 (0.0-0.4) X10*3/uL Baso # (Auto) 0.0 (0.0-0.2) X10*3/uL Abs Immat Gran (auto) 0.03 (0.00-0.03) X10*3/uL Absolute Neuts (auto) 4.1 (2.0-8.3) x10*3/uL Absolute Nucleated RBC 0.000 (0.0-0.012) X10*3/uL Nucleated RBC % (auto) 0.0 (0.0-0.2) /100WBC PT 10.8 L (11.1-13.3) SEC INR 0.9 (0.9-1.1) APTT 33.4 (26.0-36.8) SEC Sodium 141 (135-145) mmol/L Potassium 4.0 (3.3-5.1) mmol/L Chloride 100 (96-108) mmol/L Carbon Dioxide 32 H (22-29) mmol/L Anion Gap 13 (12-20) BUN 7 L (9-16) mg/dL Creatinine 1.22 (0.5-1.4) mg/dL Estim Creat Clear Calc 67.2 Estimated GFR 48 Random Glucose 114 (60-115) mg/dL Calcium 9.9 (8.4-10.2) mg/dL Magnesium 2.2 (1.6-2.6) mg/dL Total Bilirubin 0.2 (0.0-1.0) mg/dL AST 18 (5-31) U/L ALT 14 (0-31) U/L Alkaline Phosphatase 94 (39-117) U/L Troponin I High Sens < 2.7 (<3.5-17.0) ng/L Total Protein 8.6 H (6.5-8.0) g/dL Albumin 4.4 (3.5-5.0) g/dL Influenza Type A (PCR) NEGATIVE (Negative) Influenza Type B (PCR) NEGATIVE (Negative) RSV RNA Qual (PCR) NEGATIVE (Negative) SARS-CoV-2 RNA (RT-PCR) NEGATIVE (Negative) Independent Interpretation I performed an independent interpretation of an: Plain X-Ray Radiology Impression Discussion of test interpretation with radiology: I have reviewed the radiologist's reading. Independent Historian Clinical information obtained from an independent historian. History obtained from or confirmed by: Other (patient) External Record Review External record reviewed: Other (prior visits) Prescription Management I considered prescription management with: Pain Medication and Antibiotic Discharge Plan Discharge Clinical Impression: Upper respiratory infection Patient Disposition: Home, Self-Care Instructions: Community Acquired Pneumonia (ED) Additional Instructions: your x-ray shows pneumonia. You will be discharged with antibiotics and cough medication. Recommend follow-up with your primary care provider. Return to the ED for chest pain, shortness of breath, coughing up blood, chest pain / shortness of breath on inspiration and on exertion, leg swelling, calf pain, weakness, fever, chills, or any other concerning symptoms. Prescriptions: New doxycycline hyclate 100 mg capsule 100 mg PO BID 7 Days Qty: 14 0RF amoxicillin-pot clavulanate 875-125 mg tablet 1 tab PO Q12H 5 Days Qty: 10 0RF benzonatate 200 mg capsule 200 mg PO TID PRN (Reason: cough) 5 Days Qty: 15 0RF No Action cyclobenzaprine 10 mg tablet 5 mg PO BEDTIME PRN (Reason: muscle spasm) Qty: 14 0RF lidocaine 5 % adhesive patch,medicated 1 patch topical DAILY PRN (Reason: pain) Qty: 15 0RF Rx Instructions: leave on most painful area for up to 12 hrs naproxen 500 mg tablet 500 mg PO BID PRN (Reason: pain) Qty: 14 0RF Rx Instructions: Take with food lactulose 10 gram/15 mL (15 mL) solution 10 g PO BID PRN (Reason: constipation) Qty: 600 0RF Stand Alone Forms: Work/School Release Interventions: ED Discharge Assessment Last Done: 08/09/23 14:23 Discharge Date/Time: 08/09/23 14:26 Print Language: Mexican
[2023-08-09 14:23] VITALS: BP 143/92; PULSE 91; RESP 18; TEMP 36.6; O2SAT 95
== END 2023-08-09 14:26 | disposition home or self-care (01) ==
PROVIDERS: Physician Assistant Medical; Emergency Provider Student in an Organized Health Care Education/Training Program; PCP Nurse Practitioner Primary Care
DX: J06.9 Acute upper respiratory infection, unspecified (principal); R05.9 Cough, unspecified; R06.02 Shortness of breath; Z11.52 Encounter for screening for COVID-19; Z20.828 Contact with and (suspected) exposure to other viral communicable diseases
CPT/HCPCS: 0241U; 71046; 80053; 83735; 84484; 85025; 85610; 85730; 93005; 99283; 99284

== ENCOUNTER → 2023-08-09 10:29 | Outpatient (BNV) | payer MEDICAID, SELFPAY | PROVIDERS: PCP Nurse Practitioner Primary Care; Visit Provider Internal Medicine Cardiovascular Disease | DX: R07.9 Chest pain, unspecified (principal) | CPT/HCPCS: 93010 ==

== ENCOUNTER 2023-11-29 14:41 | Outpatient (REF) | payer MEDICAID, SELFPAY ==
--- NOTE | ~2023-11-29 | XR_ITS ---
EXAMINATION: XR RIBS, LEFT WITH CHEST XR FOOT, LEFT XR ANKLE, LEFT CLINICAL INFORMATION: Fall with pain. COMPARISON: Left foot study of June 13, 2011 TECHNIQUE: 4 views of the left ribs with PA chest, 3 view left ankle, and 3 view left foot. FINDINGS: LEFT FOOT: There appears to be a Lisfranc injury with fractures involving the bases of the second, third, and fourth metatarsals with some widening of space between the second and third metatarsals. There is large amount of soft tissue swelling present. There is question of an avulsion injury about the medial aspect of the first tarsometatarsal joint. Achilles calcaneal spur present. LEFT ANKLE: There is no evidence of acute fracture or dislocation of the left ankle. Left ankle mortise is intact. LEFT RIBS WITH CHEST: PA film of the chest does not demonstrate any evidence of acute parenchymal disease, pneumothorax, or pleural effusion. Heart normal size. No evidence of pulmonary edema. Status post previous neck surgery. No acute displaced left rib fracture is appreciated. XR/XR foot LT min 3V IMPRESSION: No acute parenchymal disease within the chest and no acute displaced left rib fracture are seen. No evidence of acute fracture or dislocation of the left ankle. Lisfranc injury of the left foot with fractures seen involving the second through fourth metatarsal bases and with avulsion injury about the first tarsometatarsal joint.
--- NOTE | ~2023-11-29 | XR_ITS ---
EXAMINATION: XR RIBS, LEFT WITH CHEST XR FOOT, LEFT XR ANKLE, LEFT CLINICAL INFORMATION: Fall with pain. COMPARISON: Left foot study of June 13, 2011 TECHNIQUE: 4 views of the left ribs with PA chest, 3 view left ankle, and 3 view left foot. FINDINGS: LEFT FOOT: There appears to be a Lisfranc injury with fractures involving the bases of the second, third, and fourth metatarsals with some widening of space between the second and third metatarsals. There is large amount of soft tissue swelling present. There is question of an avulsion injury about the medial aspect of the first tarsometatarsal joint. Achilles calcaneal spur present. LEFT ANKLE: There is no evidence of acute fracture or dislocation of the left ankle. Left ankle mortise is intact. LEFT RIBS WITH CHEST: PA film of the chest does not demonstrate any evidence of acute parenchymal disease, pneumothorax, or pleural effusion. Heart normal size. No evidence of pulmonary edema. Status post previous neck surgery. No acute displaced left rib fracture is appreciated. XR/XR ankle LT min 3V IMPRESSION: No acute parenchymal disease within the chest and no acute displaced left rib fracture are seen. No evidence of acute fracture or dislocation of the left ankle. Lisfranc injury of the left foot with fractures seen involving the second through fourth metatarsal bases and with avulsion injury about the first tarsometatarsal joint.
--- NOTE | ~2023-11-29 | XR_ITS ---
EXAMINATION: XR RIBS, LEFT WITH CHEST XR FOOT, LEFT XR ANKLE, LEFT CLINICAL INFORMATION: Fall with pain. COMPARISON: Left foot study of June 13, 2011 TECHNIQUE: 4 views of the left ribs with PA chest, 3 view left ankle, and 3 view left foot. FINDINGS: LEFT FOOT: There appears to be a Lisfranc injury with fractures involving the bases of the second, third, and fourth metatarsals with some widening of space between the second and third metatarsals. There is large amount of soft tissue swelling present. There is question of an avulsion injury about the medial aspect of the first tarsometatarsal joint. Achilles calcaneal spur present. LEFT ANKLE: There is no evidence of acute fracture or dislocation of the left ankle. Left ankle mortise is intact. LEFT RIBS WITH CHEST: PA film of the chest does not demonstrate any evidence of acute parenchymal disease, pneumothorax, or pleural effusion. Heart normal size. No evidence of pulmonary edema. Status post previous neck surgery. No acute displaced left rib fracture is appreciated. XR/XR ribs LT min 3V w CXR1V IMPRESSION: No acute parenchymal disease within the chest and no acute displaced left rib fracture are seen. No evidence of acute fracture or dislocation of the left ankle. Lisfranc injury of the left foot with fractures seen involving the second through fourth metatarsal bases and with avulsion injury about the first tarsometatarsal joint.
== END 2023-11-29 14:42 | disposition home or self-care (01) ==
LOC: HO.HHCX 14:41
PROVIDERS: Visit Provider Internal Medicine
DX: M79.672 Pain in left foot (principal); M25.572 Pain in left ankle and joints of left foot; R07.81 Pleurodynia
CPT/HCPCS: 71101; 73610; 73630

== ENCOUNTER 2024-10-13 14:26 | Emergency (ER) | payer MEDICAID, SELFPAY ==
--- NOTE | ~2024-10-13 | XR_ITS ---
EXAMINATION: XR ELBOW, LEFT CLINICAL INFORMATION: fall, pain COMPARISON: None available. TECHNIQUE: AP, lateral, and oblique views of the left elbow. FINDINGS: Anterior and posterior fat pads are visible residual question of a joint effusion. No fracture line is identified. XR/XR elbow LT 2V IMPRESSION: Suspected joint effusion, occult radial head fracture is not ruled out, but not demonstrated. If there is clinical concern, follow-up x-ray in 7-10 days. Electronically signed by: Linden Hood MD 10/13/2024 04:07 PM EDT
--- NOTE | ~2024-10-13 | XR_ITS ---
EXAMINATION: XR RIBS, LEFT CLINICAL INFORMATION: fall, pain COMPARISON: November 29, 2023 TECHNIQUE: 3 views of the left ribs were obtained. FINDINGS: There is focal airspace opacity near the left cardiac apex. Lungs are clear otherwise. No rib deformity, cortical step-off, or fracture line is demonstrated. XR/XR ribs LT min 3V w CXR1V IMPRESSION: Possible left basilar pneumonia or atelectasis. No rib fracture is demonstrated Electronically signed by: Linden Hood MD 10/13/2024 04:10 PM EDT
[2024-10-13 15:07] VITALS: BP 106/69; PULSE 78; RESP 16; TEMP 36.3; O2SAT 96; BMI 28.1
--- NOTE | 2024-10-13 15:07 | ED_ITS ---
HPI - Extremity Injury (Upper) General Chief Complaint: Fall Stated Complaint: L Arm Elbow Side Pain Fall 10/12/24 Time Seen by Provider: 10/13/24 16:21 Source: patient Mode of arrival: ambulatory History of Present Illness ED Provider: Britni ANG narrative: 48-year-old female presenting to the emergency department today for evaluation of injuries sustained from a slip and fall while at home last night. Patient states she was walking down her hallway to get her daughter a towel when she accidentally tripped on something causing her to fall forward catching herself on her left elbow and right hand. She sustained injury to her left side of her ribs as well as her left elbow. She is denying any paresthesias or weakness. She is right-hand dominant. She denies any head trauma or loss of conscious ness. She has not had any back pain neck pain no difficulty with moving her neck. While it does hurt for her to take a deep breath then movement is more tolerable and she does not feel short of breath. She noticed some bruising along her ribs. Reports no pain radiating to her shoulder or to her hand or wrist but it does hurt to move her left elbow. She denies prior trauma to this area in the past. She tried a topical bottom at home for her elbow which bothers her the most and it may have little effect. She is not on any anticoagulation MD complaint: injury to: left and elbow Related Data Previous Rx's ?Medication ?Instructions ?Recorded cyclobenzaprine 10 mg tablet 5 mg (1/2 x 10 mg) PO BED TIME PRN 01/15/22 muscle spasm #14 tabs lidocaine 5 % topical patch 1 patch topical DAILY PRN pain #15 01/15/22 ea naproxen 500 mg tablet 500 mg PO BID PRN pain #14 t abs 01/15/22 lactulose 10 gram/15 mL (15 mL) 10 g (15 mL) PO BID OH N 05/26/23 oral solution constipation #600 mL amoxicillin 875 mg-potassium 1 tab PO Q12H 5 days #10 tabs 08/09/23 clavulanate 125 mg tablet benzonatate 200 mg capsule 200 mg PO TID PRN cough 5 d ays #15 08/09/23 caps doxycycline hyclate 100 mg capsule 100 mg PO BID 7 day s #14 caps 08/09/23 cyclobenzaprine 10 mg tablet 10 mg PO BEDTIME PRN musc le spasm 10/13/24 #10 tabs meloxicam 15 mg tablet 15 mg PO DAILY #14 tabs 05/09 Allergies Allergy/AdvReac Type Severity Reaction Status Date / Time No Known Allergies Allergy Verified 10/13/24 15:09 Review of Systems Review of Systems: Yes all other systems are reviewed and are negative PMFSH Past Medical History Attestation statement: The following information was validated with the patient. Source: obtained from family and nursing notes reviewed Surgical History Status post bunionectomy Family History Family History Father Cancer Mother Cancer Physical Exam Vital Signs: Vital Signs: Last Vital Signs Temp 97.4 F 10/13/24 15:07 Pulse 78 10/13/24 15:07 Resp 16 10/13/24 15:07 BP 106/69 10/13/24 15:07 Pulse Ox 96 10/13/24 15:07 O2 Del Method Room Air 10/13/24 15:07 BMI result Body Mass Index 28.1 Const: Other: General: Appears in no acute distress, appears well nourished body habitus is [x], appears [stated age]. No septic or ill-appearing. Vitals reviewed normal, PMH/Social and Surgical hx reviewed including allergies and current medications. - reviewed for prior visits here and [not read/read as it pertains to similar CC]. Head: Normocephalic, no obvious trauma or skin lesions noted. Eyes: EOMI ENMT: moist oral mucosa Neck: trachea midline Cardiovascular: peripheral perfusion normal, Regular heart rate Respiratory: no respiratory distress Abdomen: nondistended Extremities: warm and moving without difficulty with exception to the left upper extremity. Patient has limited extension and flexion of the left elbow. She has tenderness to palpation of the lateral elbow with mild soft tissue swelling but no crepitus or obvious deformity. She is able to supinate and pronate but it does hurt do supination motion muscle testing was deferred for this reason. 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 No midline tenderness step-offs or deformities of entire spine moving neck in all directions without any difficulty Psych: Cooperative Neuro: Alert and oriented. General: cooperative, healthy appearing, comfortable, no acute distress and well developed Nutritional Appearance: obese Orientation/consciousness: patient oriented x3 Limitations: no limitations Neuro: General: patient oriented x3 Course Course Course Narrative: This is an RME performed by Genaro Serrano, MEETING MANAGER: Additional HPI, ROS, PE not included below will be deferred to primary provider. patient is a 48-year-old female who presents emergency department for evaluation. She mechanical slip and fall yesterday down 3-4 stairs with a resultant pain and injury to the left elbow in the left lateral ribs that exacerbates with movement and deep inspiration. Plan: XR elbow, XR ribs Medical Decision Making Medical Decision Making [facility] Narrative: Patient presents to ED today for evaluation of left sided rib and elbow pain. PORFIRIO is trip and fall yesterday. This is not work related. H and P as above. Patient is afebrile with stable vitals and well-appearing. ?History and physical as stated above. ?Patient is neurovascular intact in the affected extremity. ?X- rays were obtained to further evaluate. At this time no evidence of NVC to warrant further work up/ intervention or consult. They show no pneumothorax hemothorax rib fracture or obvious fracture howeverpossible occult radial neck fracture given that there is anterior posterior fat pads present. No evidence of NVC. Patient did not hit her head or experience any loss of consciousness she does not present with evidence of an ICH or concussion clinically. She is low risk for cervical spine fracture via nexus criteria imaging deferred for this. Patient?s left upper extremity?was placed in an arm sling. ?Discussed icing it, elevating and alternating ibuprofen and Tylenol for discomfort. ?Discussed that there is no significant improvement in the next 1 to 2 weeks to follow-up with an ?orthopedic clinic, information given. Discussed symptomatic treatment with the patient. ?Discussed return precautions. ?Patient verbalized understanding of the above plan and is in agreement with the above plan. ?The patient was discharged home in stable condition with return precautions. Differential Diagnosis Differential Diagnoses: The differential diagnosis associated with the presentation includes LUE dislocation, NVC LUE sprain PTX, rib fx contusion Admission/Observation Consideration of admission/observation: Escalation of care including admission/observation considered Patient would have been admitted to the hospital had her work up had any findings where hospital admission was appropriate and her clinical presentation warranted hospital admission. Independent Interpretation I performed an independent interpretation of an: Plain X-Ray Interpretation: Potential fracture radial neck even fat pads that are present but no obvious fracture no rib fracture no hemothorax no pneumothorax Radiology Impression Discussion of test interpretation with radiology: I have reviewed the radiologist's reading. Radiologist Impression: Potential for occult radial neck fracture. Atelectasis left lower lobe but no hemothorax pneumothorax or rib fracture Independent Historian Clinical information obtained from an independent historian. History obtained from or confirmed by: Other (aunt) Tests considered The following testing was considered but not selected: Had patient had a fall or loss of consciousness or unwitnessed trauma would have considered further imaging such as head CT and trauma scans of the thorax pelvis Prescription Management I considered prescription management with: Pain Medication Discharge Plan Discharge Clinical Impression: Contusion of rib on left side, Contusion of elbow, left, Fall, Effusion of left elbow Patient Disposition: Home, Self-Care Instructions: Elbow Fracture (ED), Swollen Joint (ED), Rib Contusion (ED) Additional Instructions: You were seen in the emergency department today following an event of a slip and fall while at home yesterday. He had imaging done today that does not show an obvious rib fracture or pneumothorax. Most likely bruising of the ribs this can take a proximally about a month to feel better use the pain patches that you have at home along with intermittent cool and warm compresses of the area you can alternate Tylenol and Motrin for discomfort. While taking meloxicam do not take Motrin or other NSAIDS at the same time. Use the muscle relaxant for nighttime. You also had imaging done of your left elbow which shows concern for potential fracture of the radial neck. You have been placed in a shoulder sling you can remove this while sleeping and while showering however tried to remove majority of the time until otherwise told by orthopedics. Same care instructions as above. Return to the emergency department should you experiencing any shortness of breath chest discomfort or new onset of weakness or paresthesias of your limb. Prescriptions: New meloxicam 15 mg tablet 15 mg PO DAILY Qty: 14 0RF cyclobenzaprine 10 mg tablet 10 mg PO BEDTIME PRN (Reason: muscle spasm) Qty: 10 0RF No Action cyclobenzaprine 10 mg tablet 5 mg PO BEDTIME PRN (Reason: muscle spasm) Qty: 14 0RF lidocaine 5 % adhesive patch,medicated 1 patch topical DAILY PRN (Reason: pain) Qty: 15 0RF Rx Instructions: leave on most painful area for up to 12 hrs naproxen 500 mg tablet 500 mg PO BID PRN (Reason: pain) Qty: 14 0RF Rx Instructions: Take with food lactulose 10 gram/15 mL (15 mL) solution 10 g PO BID PRN (Reason: constipation) Qty: 600 0RF doxycycline hyclate 100 mg capsule 100 mg PO BID 7 Days Qty: 14 0RF amoxicillin-pot clavulanate 875-125 mg tablet 1 tab PO Q12H 5 Days Qty: 10 0RF benzonatate 200 mg capsule 200 mg PO TID PRN (Reason: cough) 5 Days Qty: 15 0RF Referrals: [facility] [place] Group] - 2 days Referral Note: occult radial head fracture Stand Alone Forms: Work/School Release Print Language: Belarusian
[2024-10-13 17:03] VITALS: BP 106/69; PULSE 78; RESP 16; TEMP 36.3; O2SAT 96
== END 2024-10-13 17:04 | disposition home or self-care (01) ==
PROVIDERS: Emergency Provider Internal Medicine; PCP Nurse Practitioner Primary Care
DX: S50.02XA Contusion of left elbow, initial encounter (principal); S20.212A Contusion of left front wall of thorax, initial encounter; M25.422 Effusion, left elbow; X58.XXXA Exposure to other specified factors, initial encounter; Y93.9 Activity, unspecified; Y92.9 Unspecified place or not applicable; Y99.8 Other external cause status
CPT/HCPCS: 71101; 73070; 99282; 99283; 99284

== ENCOUNTER → 2024-10-13 15:09 | Outpatient (BNV) | payer MEDICAID, SELFPAY | PROVIDERS: Emergency Provider Internal Medicine; PCP Nurse Practitioner Primary Care; Visit Provider Radiology Diagnostic Radiology | DX: R07.81 Pleurodynia (principal); M25.522 Pain in left elbow; W19.XXXA Unspecified fall, initial encounter | CPT/HCPCS: 71101; 73070 ==

== ENCOUNTER 2024-10-23 08:42 | Outpatient (REF) | payer MEDICAID, SELFPAY ==
--- OUTSIDE RECORDS SUMMARY | 2024-10-23 08:49 | XMS_ITS | Encounter Summary ---
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 Role Phone Brianna Perez Primary Care Provider [phone] Reason for Visit * Reason Onset Date Comments Med Refill 10/19/2024 Encounter Details Date Type Department Care Team (Late st Contact Info) Description 10/19/2024 Refill [facility] [address] [place] [address] Shonna Reveles MD [address] [place] [address] Opioid type dependence, continuous (CMS/HCC) Social History Tobacco Use Types Packs/Day Years Used Date Smoking Tobacco: Every Day Cigarettes Passive Smoke Exposure: Current Smokeless Tobacco: Current Depression Answer Date Recorded Patient Health Questionnaire-9 Score 24 10/06/2024 Patient Health Questionnaire-9 Score 24 10/06/2024 Last PHQ-9: Questionnaire Data Not on file 0 10/06/2024 Housing Stability Answer Date Recorded What is your housing situation today? I have [facility] 09/17/[address] you li ve. Do you have problems with any of the following? None of the above 09/17/2024 Food Insecurity Answer Date Recorded Within the past 12 months, y ou worried that your food would run out before you got money to buy more: Never True 09/17/2024 Within the past 12 months,th e food you bought just didn't last and you didn't have enough money to get more: Never True 08/2024 Transportation Answer Date Recorded In the past 12 months, has l ack of transportation kept you from medical appts, meetings, work or from getting things needed for daily living? No 09/17/2024 Utilities Answer Date Recorded In the past 12 months, has t he electric, gas, oil or water company threatened to shut off services in your home? No 09/17/2024 Depression Answer Date Recorded Patient Health Questionnaire-2 Score 6 10/06/2024 Internet Access Answer Date Recorded Internet Access Q1 No 09/17/2024 Internet Access Q2 Not on file 09/17/2024 Comments No Sex and Gender Information Value Date Recorded Sex Assigned at Female 02/12/2022 10:17 AM EDT Legal Sex Female 10:17 AM EDT Gender Identity Female 02/12/2022 10:17 AM EDT Sexual Orientation Straight 02/12/2022 10 :17 AM EDT documented as of this encounter Plan of Treatment Upcoming Encounters Date Type Department Care Team (Late st Contact Info) Description 10/23/2024 11:00 AM EDT Clinical Support [address] [address] Max Garvey RN [address] [place] [phone] 10/29/2024 2:00 PM EDT Office Visit [address] [address] Shonna Reveles MD [address] [place] [phone] 11/05/2024 3:15 PM EDT Office Visit [address] [address] Shonna Reveles MD [address] [place] [phone] 11/27/2024 10:00 AM EDT Clinical Support [address] [address] Katie Dixon, RN [address] [place] [phone] 12/15/2024 11:30 AM EDT Office Visit [address] [place] [address] Brianna Perez ANP [address] [place] [address] documented as of this encounter Goals Goal Patient Goal Type Associated Problems Recent Progress Patient-Stated? 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
== END 2024-10-23 08:43 | disposition home or self-care (01) ==
LOC: HO.HOSX 08:42
DX: Z13.89 Encounter for screening for other disorder (principal)

== ENCOUNTER 2024-10-30 12:48 | Outpatient (AMB) | payer MEDICAID, SELFPAY ==
--- OUTSIDE RECORDS SUMMARY | 2024-10-30 12:51 | XMS_ITS | Clinical Summary ---
Author Organization [employer] Address [address] [facility] [address] [place] [address] Care Team Providers Care Integrity Analyst Name Role Phone Fred Dykes CHE Primary Care Provider [phone] Allergies No known active allergies Medications * This document contains information received from the source organization and may not represent a complete record from that organization. albuterol (Proventil HFA) 108 (90 Base) MCG/ACT inhalerIndication s:Smoker INHALE 2 PUFFS BY MOUTH EVERY 4 TO 6 HOURS NEEDED FOR WHEEZING OR SHORTNESS OF BREATH 6.7 g 1 023 Active cholecalciferol (Vitamin D-3) 50 MCG (1999 UT) capsuleIndication s:Vitamin D deficiency take 1 Capsule by Oral route every day 90 capsule 023 Active albuterol (Ventolin HFA) 108 (90 Base) MCG/ACT inhalerIndication s:Wheezing INHALE 2 PUFFS BY MOUTH EVERY 4 TO 6 HOURS NEEDED FOR WHEEZING OR SHORTNESS OF BREATH 18 g 1 023 Active docusate sodium (Colace) 100 MG capsuleIndication s:Constipation, unspecified constipation type TAKE 1 CAPSULE BY MOUTH TWICE DAILY 180 capsule 023 Active senna (Senokot) 8.6 MG tabletIndications :Other constipation TAKE 1 TO 2 TABLETS BY MOUTH EVERY EVENING FOR CONSTIPATION 180 tablet 024 Active levothyroxine (Synthroid, Levoxyl) 200 MCG tabletIndications :Postoperative hypothyroidism TAKE 1 TABLET BY MOUTH EVERY MORNING ON AN EMPTY STOMACH 90 tablet 024 Active lactulose (Chronulac) 10 GM/15ML solution 024 Active acetaminophen (Tylenol) 500 MG tabletIndications :Closed fracture of left foot with routine healing, subsequent encounter Take 2 tablets (1,000 mg) by mouth every 6 (six) hours if needed for moderate pain or fever for up to 25 doses. 50 tablet 024 Active nicotine (Nicoderm CQ) 14 MG/24HR patchIndications: Tobacco dependence Place 1 patch on the skin 1 (one) time each day at the same time. 42 patch 024 Active nicotine (Nicoderm CQ) 7 MG/24HR patchIndications: Tobacco dependence Place 1 patch on the skin 1 (one) time each day at the same time. 14 patch 024 Active nicotine polacrilex (Commit) 4 MG lozengeIndication s:Tobacco dependence Dissolve 1 lozenge (4 mg) in the mouth every 2 (two) hours if needed for smoking cessation. 100 lozenge 024 Active Blood Pressure kitIndications:Es sential hypertension 1 each 2 times daily. 1 kit 024 2024 Active oxyCODONE (Roxicodone) 5 MG immediate release tabletIndications :Closed fracture of left foot with routine healing, subsequent encounter Take 1 tablet (5 mg) by mouth every 6 (six) hours if needed for severe pain. 20 tablet 024 Active prazosin (Minipress) 2 MG capsuleIndication s:Nightmares TAKE 1 CAPSULE BY MOUTH EVERY DAY AT BEDTIME 90 capsule 1 025 Active hydroCHLOROthiazi de (Microzide) 12.5 MG capsuleIndication s:Essential hypertension TAKE 1 CAPSULE BY MOUTH EVERY DAY 90 capsule 025 Active hydrOXYzine HCl (Atarax) 25 MG tablet Take 2 tablets (50 mg) by mouth every 8 (eight) hours if needed for anxiety. 6 tablet 025 2024 Active cloNIDine (Catapres) 0.1 MG tablet Take 2 tablets (0.2 mg) by mouth at bedtime for 2 days. 4 tablet 025 Active Buprenorphine HCl-Naloxone HCl (Suboxone) 8-2 MG SL filmIndications:U ncomplicated opioid dependence (CMS/HCC) Place 2 Film under the tongue Once per day for 14 days. 28 Film 025 Active clonazePAM (KlonoPIN) 1 MG tabletIndications :Anxiety TAKE 1 TABLET BY MOUTH EVERY DAY NEEDED FOR ANXIETY Do not start before October 21, 2024. 28 tablet 025 Active QUEtiapine (SEROquel) 50 MG tabletIndications :Mood disorder (CMS/HCC) Take 1 tablet (50 mg) by mouth in the morning. Do not start before October 21, 2024. 30 tablet 025 Active QUEtiapine (SEROquel) 300 MG tabletIndications :Mood disorder (CMS/HCC) Take 1 tablet (300 mg) by mouth at bedtime. Do not start before October 21, 2024. 30 tablet 025 Active buprenorphine-nal oxone (Suboxone) 12-3 MG per sublingual filmIndications:O pioid type dependence, continuous (CMS/HCC) Place 1 Film under the tongue every 12 (twelve) hours for 7 days. 14 Film Active QUEtiapine (SEROquel) 300 MG tabletIndications :Mood disorder (CMS/HCC) Take 1 tablet (300 mg) by mouth at bedtime. 30 tablet 025 2024 Discontinued(R eorder (will not trigger notification to Pharmacy)) QUEtiapine (SEROquel) 50 MG tabletIndications :Mood disorder (CMS/HCC) Take 1 tablet (50 mg) by mouth in the morning. 30 tablet 025 2024 Discontinued(R eorder (will not trigger notification to Pharmacy)) clonazePAM (KlonoPIN) 1 MG tabletIndications :Anxiety TAKE 1 TABLET BY MOUTH EVERY DAY NEEDED FOR ANXIETY Do not start before September 25, 2024. 28 tablet 025 2024 Discontinued(R eorder (will not trigger notification to Pharmacy)) buprenorphine-nal oxone (Suboxone) 12-3 MG per sublingual filmIndications:O pioid type dependence, continuous (CMS/HCC) Place 1 Film under the tongue every 12 (twelve) hours for 7 days. 14 Film 025 2024 Discontinued(R eorder (will not trigger notification to Pharmacy)) buprenorphine-nal oxone (Suboxone) 12-3 MG per sublingual filmIndications:O pioid type dependence, continuous (CMS/HCC) Place 1 Film under the tongue every 12 (twelve) hours for 7 days. 14 Film 025 2024 Discontinued(R eorder (will not trigger notification to Pharmacy)) Active Problems Problem Noted Date Diagnosed Date HELGA (generalized anxiety disorder) 10/06/2024 Opioid use disorder 10/06/2024 Severe episode of recurrent major depressive disorder, without psychotic features 10/06/2024 Long-term current use of benzodiazepine 07/18/19 25 Tobacco dependence 12/13/2023 Acute left ankle pain 11/29/2023 Assessment & Plan (11/29/2023 2:37 PM EDT): Start ibuprofen tomorrow Today acetaminophen, Toradol, elevate left foot, rest and apply ice Left foot pain 11/29/2023 Rib pain on left side 11/29/2023 Sprain of anterior talofibular ligament of left ankle 11/29/2023 Assessment & Plan (11/29/2023 2:35 PM EDT): Crutches will be prescribe today Family history of malignant neoplasm of thyroid 03/15/2022 Anemia 07/17/2018 Essential hypertension 07/17/2018 Prediabetes 07/17/2018 Pure hyperglyceridemia 07/17/2018 Serum creatinine raised 07/17/2018 Vitamin D deficiency 07/17/2018 Mood disorder 11/09/2015 Postoperative hypothyroidism 11/09/2015 Encounters * This document contains information received from the source organization and may not represent a complete record from that organization. Date Type Department Care Team Description 10/19/2024 Refill [facility] MEDICINE [address] [place] [address] Shonna Reveles MD Opioid type dependence, continuous (CMS/HCC) 10/15/2024 2:15 PM EDT Clinical Support [facility] [address] [place] [address] Max Garvey RN Uncomplicated opioid dependence (CMS/HCC) (Primary Dx) 10/15/2024 Orders Only [facility] [address] [place] [address] Fred Dykes ANP 10/15/2024 Refill [facility] [address] [facility] [place] [address] Max Garvey RN Anxiety; Mood disorder (CMS/HCC) 10/15/2024 Travel 10/14/2024 Telephone [facility] [address] [facility] [place] [address] Fred Dykes ANP Referral 10/14/2024 Travel 10/13/2024 Orders Only [facility] External Provider, [facility] 10/13/2024 Refill [facility] [address] [facility] [place] [address] Shonna Reveles MD Opioid type dependence, continuous (CMS/HCC) 10/08/[address] [address] Shonna Reveles MD 10/08/2024 Travel 10/02/2024 Travel 10/02/2024 Telephone [facility]S [address] [place] [address] Katie Dixon RN EN[employer]EVEL [employer]ER 09/29/[address] [address] Shonna Reveles MD Opioid type dependence, continuous (CMS/HCC) 09/28/2024 1:00 PM EDT Clinical Support [address] [address] Max Garvey RN Uncomplicated opioid dependence (CMS/HCC) 09/28/2024 11:00 AM EDT Telemedicine [address] [address] Fred Dykes ANP Uncomplicated opioid dependence (CMS/HCC) (Primary Dx); Anxiety; Long-term current use of benzodiazepine; Essential hypertension; Mood disorder (CMS/HCC); Tobacco dependence; Postoperative hypothyroidism; Prediabetes 09/28/2024 Travel 09/25/2024 Refill [facility] MED[facility]INE [address] [place] [phone] Max Garvey RN Opioid type dependence, continuous (CMS/HCC) 09/24/2024 1:45 PM EDT Office Visit [address] [address] Shonna Reveles MD Opioid type dependence, continuous (CMS/HCC) (Primary Dx); Mood disorder (CMS/HCC) 09/24/2024 Orders Only [facility] [address] [place] [address] Fred Dykes ANP 09/24/2024 Refill [facility] [address] [place] [address] Katie Dixon, MECHELLE Anxiety 09/24/[address] [address] Fred Dykes ANP Med Refill 09/24/2024 Travel 09/18/2024 10:30 AM EDT Clinical Support [address] [address] Max Garvey RN Opioid dependence, uncomplicated (CMS/HCC) [F11.20] 09/18/[address] [address] Shonna Reveles MD Uncomplicated opioid dependence (CMS/HCC) 09/18/2024 Travel 09/17/2024 2:45 PM EDT Office Visit [address] [address] Shonna Reveles MD Uncomplicated opioid dependence (CMS/HCC) (Primary Dx) 09/17/2024 1:00 PM EDT Office Visit [address] [address] Sayda Prince, MECHELLE Opioid use 09/17/2024 Travel 08/25/2024 Travel 08/25/2024 Telephone [facility] [address] [place] [address] Fred Dykes ANP 08/25/2024 Refill [facility] [address] [place] [address] Fred Dykes ANP Essential hypertension; Anxiety from Last 3 Months Immunizations Immunization Administration Dates Next Due Hep B, adult 11/09/2015,01/26/2011,05/02/2010 Influenza injectable quadriv alent IIV4 with preservative 12/28/2016 Influenza injectable quadriv alent preservative free 07/17/2018,04/26/2016 Influenza, IIV3, injectable 01/13/2014, 1 MMR 01/16/2011,05/05/2010 TD (adult), 2 Lf tetanus tox oid, preservative free, adsorbed 07/26/2023 Tdap 05/02/2010 Varicella 05/02/2010 Family History Medical History Relation Name Comments Cancer Mother thyroid cancer Mental illness Mother Bipolar d/o Mental illness Mother's Sister Depression Other Hypertension Other Mental illness Other Relation Name Status Comments Mother Mother's Sister Other Social History Tobacco Use Types Packs/Day Years Used Date Smoking Tobacco: Every Day Cigarettes Passive Smoke Exposure: Current Smokeless Tobacco: Current Tobacco Cessation:Ready to Q uit: No; Counseling Given: Not Answered Depression Answer Date Recorded Patient Health Questionnaire-9 [...] Orientation Straight 02/12/2022 10 :17 AM EDT Last Filed Vital Signs Vital Sign Reading Time Taken Comments Blood Pressure 125/80 09/17/2024 2:09 PM EDT Pulse 68 09/17/2024 2:09 PM EDT Temperature 36.7 C (98.1 F) 09/17/2024 2:09 PM EDT Respiratory Rate 20 09/17/2024 2:09 PM EDT Oxygen Saturation 95% 12/13/2023 2:55 PM EDT Inhaled Oxygen Concentration - - Weight 87.1 kg (192 lb) 07/26/2023 1:20 PM EDT Height 170.2 cm (5' 7 ) 07/26/2023 1:20 PM EDT Body Mass Index 30.07 07/26/2023 1:20 PM EDT Plan of Treatment Upcoming Encounters Date Type Department Care Team (Late st Contact Info) Description 11/05/2024 3:15 PM EDT Office Visit [address] [address] Shonna Reveles MD [address] [place] [phone] 11/12/2024 2:45 PM EDT Office Visit [address] [address] Shonna Reveles MD [address] [place] [phone] 11/27/2024 10:00 AM EDT Clinical Support [address] [address] Katie Dixon, MECHELLE [address] [place] [address] 12/15/2024 11:30 AM EDT Office Visit [address] [address] Fred Dykes ANP [address] [place] [phone] Health Maintenance Due Date Last Done Comments CT Colonography 1975 Colonoscopy 1977 Colorectal Cancer Screening 1975 FIT DNA/Cologuard 1977 FIT 1977 FOBT 1975 HIV Screening 1975 Lipid Panel 1975 Sigmoidoscopy 1977 Family Planning (PISQ) 1992 Hepatitis C Screening 12/09/1995 Pneumococcal Vaccine: Pediatrics (0 to 5 Years) and At-Risk Patients (6 to 49) Years (1 of 2 - PCV) 1996 Pap Smear 1998 Cervical Cancer Screening 12/09/2007 HPV/Cotest 12/09/2007 Mammogram 2017 COVID-19 Vaccine ( season) 2023 Diabetes: Hemoglobin A1C 07/25/2024 07/26/2023 Influenza Vaccine (#1) 2024 9, 12/28/2016, 04/26/2016, Additional history exists Depression Monitoring 04/07/2025 10/06/2024, 025 Alcohol/Substance Use Screening 09/17/2025 09/17/2024 SDOH Screening 09/17/2025 09/17/2024 Disability Screening 09/28/2025 09/28/2024 Tobacco Screening 09/28/2025 09/28/2024 Zoster Vaccines (1 of 2) 12/09/2027 DTaP/Tdap/Td Vaccines (3 - Td or Tdap) 07/25/2033 07/26/2023, 05/02/2010 RSV Patients and Patients Aged 60 years or older (1 - 1-dose 75+ series) 2052 Hepatitis B Vaccines Completed 11/09/2015, 01/26/2011, 05/02/2010 HIB Vaccines Aged Out No longer eligi ble based on patient's age to complete this topic HPV Vaccines Aged Out No longer eligi ble based on patient's age to complete this topic Hepatitis A Vaccines Aged Out No long er eligible based on patient's age to complete this topic IPV Vaccines Aged Out No longer eligi ble based on patient's age to complete this topic Meningococcal B Vaccine Aged Out No l onger eligible based on patient's age to complete this topic Meningococcal Vaccine Aged Out No cinthia joe eligible based on patient's age to complete this topic RSV under 20 months Aged Out No longe r eligible based on patient's age to complete this topic Rotavirus Vaccines Aged Out No longer eligible based on patient's age to complete this topic Goals Goal Patient Goal Type Associated Problems Recent Progress Patient-Stated? Author Take your medication every day Lifestyle No Max Garvey, airfield engineer officer Procedure Name Priority Date/Time Associated Diagnosis Comments POCT TOMAS-14 URINE DRUG SCREEN Routine 10/15/2024 10:51 AM EDT Uncomplicated opioid dependence (CMS/HCC) XR RIBS 3 VIEWS LEFT W CHEST Routine 10/13/2024 3:45 PM EDT XR ELBOW 1-2 VIEWS LEFT Routine 10/13/2024 2:58 PM EDT POCT TOAMS-14 URINE DRUG SCREEN Routine 09/17/2024 2:12 PM EDT Uncomplicated opioid dependence (CMS/HCC) POCT GLYCATED HEMOGLOBIN, TOTAL Routine 07/26/2023 1:32 PM EDT Hyperglycemia from Last 3 Months or Most Recently Relevant to Health Maintenance Results * (ABNORMAL) POCT TOMAS-14 Urine Drug Screen (10/15/2024 10:51 AM EDT) Only the most recent of2 resultswithin the time period is included. THC Negative Negative Cocaine Screen, Urine Positive(A) Negative Opiate Screen, Urine Positive(A) Negative Methamphetamine Screen Urine Negative Negative Amphetamine Screen, Urine Negative Negative Benzodiazepines Screen, Urine Positive(A) Negative Barbiturate Screen, Urine Negative Negative Methadone Screen, Urine Negative Negative Buprenophine Screen, Urine Positive(A) Negative TCA, Urine Negative Negative MDMA Urine Negative Negative ng/mL Oxycodone Screen, Urine Negative Negative Phencyclidine (PCP), Urine Negative Negative Fentanyl, Urine Positive(A) Negative Urine Urine specimen obtained by clean catch procedure / Unknown 10/15/2024 10:51 AM EDT us Chito Perez MD POINT OF CARE TEST ENTER/EDIT OR DERABLES Final Result * XR Ribs 3 Views Left w/ Chest (10/13/2024 3:45 PM EDT) Anatomical Region Laterality Modality Radiographic Radha ging 10/13/2024 3:45 PM EDT Narrative 10/13/2024 4:14 PM EDT [address] [address] XRay Report Signed Patient: Ivelisse Chung MR#: [id number] : 1975 Acct:[id number] Age/Sex: 48 / F ADM Date: 10/13/24 Loc: .ED Attending Dr: Ordering Physician: Corina Serrano CNP Date of Service: 10/13/24 Procedure(s): XR ribs LT min 3V w CXR1V Accession Number(s): [id number] cc: Corina Serrano TOWER CLIMBER; FRED DYKES NP EXAMINATION: XR RIBS, LEFT CLINICAL INFORMATION: fall, pain COMPARISON: November 29, 2023 TECHNIQUE: 3 views of the left ribs were obtained. FINDINGS: There is focal airspace opacity near the left cardiac apex. Lungs are clear otherwise. No rib deformity, cortical step-off, or fracture line is demonstrated. XR/XR ribs LT min 3V w CXR1V IMPRESSION: Possible left basilar pneumonia or atelectasis. No rib fracture is demonstrated Electronically signed by: Linden Hood MD 10/13/2024 04:10 PM EDT Dictated By: Linden Hood MD Signed By: <Electronically signed by Linden Hood MD in OV> 10/13/24 1610 DD/ 1545 TD/TT: 10/13/24 1600 Poll Watcher: Procedure Note Donotgurinderinterpreter, Image - 10/13/[address] [address] XRay Report Signed Patient: Ivelisse ChungMR#: [id number] : 1975Acct:[id number] Age/Sex: 48 / FADM Date: 10/13/24 Loc: HO.ED Attending Dr: Ordering Physician: Corina Serrano CNP Date of Service: 10/13/24 Procedure(s): XR ribs LT min 3V w CXR1V Accession Number(s): [id number] cc: Corina Serrano CNP; FRED DYKES NP EXAMINATION: XR RIBS, LEFT CLINICAL INFORMATION: fall, pain COMPARISON: November 29, 2023 TECHNIQUE: 3 views of the left ribs were obtained. FINDINGS: There is focal airspace opacity near the left cardiac apex. Lungs are clear otherwise. No rib deformity, cortical step-off, or fracture line is demonstrated. XR/XR ribs LT min 3V w CXR1V IMPRESSION: Possible left basilar pneumonia or atelectasis. No rib fracture is demonstrated Electronically signed by: Linden Hood MD 10/13/2024 04:10 PM EDT Dictated By: Linden Hood MD Signed By: <Electronically signed by Linden Hood MD in OV> 10/13/24 1610 DD/ 1545 TD/TT: 10/13/24 1600 Poll Watcher: [facility] External Provider IMG XR PROCEDURES Final Result * XR Elbow 1-2 Views Left (10/13/2024 2:58 PM EDT) Anatomical Region Laterality Modality Upper Extremities, Elbow Left Radiogr aphic Imaging 10/13/2024 2:58 PM EDT Narrative 10/13/2024 4:10 PM EDT [address] [address] XRay Report Signed Patient: Ivelisse Chung MR#: [id number] : 1975 Acct:[id number] Age/Sex: 48 / F ADM Date: 10/13/24 Loc: HO.ED Attending Dr: Ordering Physician: Corina eSrrano CNP Date of Service: 10/13/24 Procedure(s): XR elbow LT 2V Accession Number(s): [id number] cc: Corina Serrano CNP; FRED DYKES [employer] EXAMINATION: XR ELBOW, LEFT CLINICAL INFORMATION: fall, pain COMPARISON: None available. TECHNIQUE: AP, lateral, and oblique views of the left elbow. FINDINGS: Anterior and posterior fat pads are visible residual question of a joint effusion. No fracture line is identified. XR/XR elbow LT 2V IMPRESSION: Suspected joint effusion, occult radial head fracture is not ruled out, but not demonstrated. If there is clinical concern, follow-up x-ray in 7-10 days. Electronically signed by: Linden Hood MD 10/13/2024 04:07 PM EDT Dictated By: Linden Hood MD Signed By: <Electronically signed by Linden Hood MD in OV> 10/13/24 1607 DD/ 1458 TD/TT: 10/13/24 1600 Poll Watcher: Procedure Note Donotuseinterpreter, Image - 10/13/[address] [address] XRay Report Signed Patient: Abilio Chung#: [id number] : 1975Acct:[id number] Age/Sex: 48 / FADM Date: 10/13/24 Loc: .ED Attending Dr: Ordering Physician: Corina Serrano CNP Date of Service: 10/13/24 Procedure(s): XR elbow LT 2V Accession Number(s): [id number] cc: Corina Serrano CNP; FRED DYKES [employer] EXAMINATION: XR ELBOW, LEFT CLINICAL INFORMATION: fall, pain COMPARISON: None available. TECHNIQUE: AP, lateral, and oblique views of the left elbow. FINDINGS: Anterior and posterior fat pads are visible residual question of a joint effusion. No fracture line is identified. XR/XR elbow LT 2V IMPRESSION: Suspected joint effusion, occult radial head fracture is not ruled out, but not demonstrated. If there is clinical concern, follow-up x-ray in 7-10 days. Electronically signed by: Linden Hood MD 10/13/2024 04:07 PM EDT RP Dictated By: Linden Hood MD Signed By: <Electronically signed by Linden Hood MD in OV> 10/13/24 1607 DD/ 1458 TD/TT: 10/13/24 1600 Poll Watcher: [facility] External Provider IMG XR PROCEDURES Final Result * POCT HGB A1C (07/26/2023 1:32 PM EDT) Hemoglobin A1C 5.9 4.0 - 6.0 % QC Media Lot # [id number] Lot# Expiration Date [id number] Blood 07/26/2023 1:32 PM EDT Fred Dykes ANP POINT OF CARE TEST ENTER/EDIT OR DERABLES Final Result from Last 3 Months or Most Recently Relevant to Health Maintenance Insurance C3 Care Teams Integrity Analyst Relationship Specialty Start Date End Date Fred Dykes ANP [address] [place] [id number] PCP - General Family Medicine 06/22/21
--- NOTE | 2024-10-30 13:28 | A.OFFVIS_ITS ---
Vital Signs 10/30/24 13:35 Height 5 ft 8 in Weight 185 lb BMI 28.1 Intake Visit Reasons: FC-L radial head fracture-DOI 10/12/24 Intake Note: Ivelisse is a 48 year old right hand dominant female who presents today for an ER follow up of left radial head fracture, DOI 10/12/24. Patient had a slip and fall down the third step when she was going to do her laundry. She presented to [facility] ER, x-rays were taken and placed in a arm sling. Patient reports ongoing pain and her most discomfort comes at night. At times she has numbness. Finds no relief with Advil. Allergies No Known Allergies Allergy (Verified 10/30/24 13:46) Medication List - Last Reconciled 11/02/24 by Genaro Villagran PA-C amoxicillin-pot clavulanate 875-125 mg 1 tab PO Q12H 5 days benzonatate 200 mg PO TID PRN 5 days buprenorphine-naloxone 8-2 mg (Suboxone) 2 film sublingual DAILY clonazepam 1 mg PO DAILY PRN cyclobenzaprine 5 mg (1/2 x 10 mg) PO BEDTIME PRN cyclobenzaprine 10 mg PO BEDTIME PRN doxycycline hyclate 100 mg PO BID 7 days hydrochlorothiazide 12.5 mg PO DAILY lactulose 10 grams (15 mL) PO BID PRN levothyroxine 13 mcg PO DAILY lidocaine 5% 1 patch topical DAILY PRN meloxicam 15 mg PO DAILY naproxen 500 mg PO BID PRN quetiapine 50 mg PO QAM quetiapine 300 mg PO BEDTIME HPI HPI FC-L radial head fracture-DOI 10/12/24: Details: 48-year-old female presents to the office today for an injury she sustained to her left elbow on 10/12/2024. She states she slipped and fell injuring the elbow. She was seen in the emergency department where x-rays were obtained and she was placed in a sling and referred to our office for ortho eval. 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 Mild tenderness over the radial head. No pain over the olecranon. No difficulty with flexion or extension, mild discomfort with supination / pronation. No pain along the distal radius or proximal humerus. Sensation and peripheral pulses present. Office Procedures AMB Fracture Care Fracture Billing Code: Fracture Billing Code Results Reviewed Results Reviewed: X-rays of the left elbow obtained in the office today and reviewed by me show a nondisplaced radial head fracture Assessment & Plan Assessment & Plan (1) Left radial head fracture: Code(s): S52.122A - Displaced fracture of head of left radius, initial encounter for closed fracture Category: Medical Qualifiers: Encounter type: initial encounter Fracture type: closed Fracture alignment: nondisplaced Qualified Code(s): S52.125A - Nondisplaced fracture of head of left radius, initial encounter for closed fracture Plan: I discussed with the patient management of the fracture which is nonoperative. She can discontinue the use of the sling and perform gentle range of motion however she should avoid any type of supination pronation with force. No heavy lifting more than a cell phone. I did place an order for occupational therapy to help her with these exercises. I would like to see her back in 4-6 weeks with x-rays, sooner if needed. Orders: Orders XR elbow LT min 3V 10/30/24 M25.522 - Pain in left elbow OT Evaluation and Treatment 10/30/24 S52.122A - Displaced fracture of head of left radius, initial encounter for closed fracture Coding Level of Care Code New Pt Level 3 (70741) Complex EM visit Add On G2211 Diagnoses Closed nondisplaced fracture of head of left radius, initial encounter S52.125A Encounter type: initial encounter Fracture type: closed Fracture alignment: nondisplaced CPT Codes Fracture Care - Fracture Billing Code: Fracture Billing Code ([id number])
[2024-10-30 13:35] VITALS: BMI 28.1
== END 2024-10-30 13:57 | disposition home or self-care (01) ==
PROVIDERS: PCP Nurse Practitioner Primary Care; Visit Provider Physician Assistant
DX: S52.125A Nondisplaced fracture of head of left radius, initial encounter for closed fracture (principal)
CPT/HCPCS: 99203

== ENCOUNTER 2024-10-30 12:48 | Outpatient (REF) | payer MEDICAID, SELFPAY ==
--- NOTE | ~2024-10-30 | XR_ITS ---
EXAMINATION: XR ELBOW, LEFT CLINICAL INFORMATION: M25.522 - Pain in left elbow COMPARISON: None available. TECHNIQUE: AP, lateral, and oblique views of the left elbow. FINDINGS: On the oblique view, there is a cortical step-off raising question of a radial head fracture, however there is no joint effusion. There are no degenerative changes. XR/XR elbow LT min 3V IMPRESSION: Possible radial head fracture. If there is clinical concern, consider follow-up in 7-10 days. Electronically signed by: Linden Hood MD 10/30/2024 01:10 PM EDT
== END 2024-10-30 12:49 | disposition home or self-care (01) ==
LOC: HO.HOSX 12:48
PROVIDERS: PCP Nurse Practitioner Primary Care; Visit Provider Physician Assistant
DX: S52.122A Displaced fracture of head of left radius, initial encounter for closed fracture (principal); M25.522 Pain in left elbow; W01.0XXA Fall on same level from slipping, tripping and stumbling without subsequent striking against object, initial encounter; Y93.E2 Activity, laundry; Z79.899 Other long term (current) drug therapy
CPT/HCPCS: 73080; 99212

== ENCOUNTER → 2024-10-30 12:55 | Outpatient (BNV) | payer MEDICAID, SELFPAY | PROVIDERS: PCP Nurse Practitioner Primary Care; Visit Provider Radiology Diagnostic Radiology | DX: M25.522 Pain in left elbow (principal) | CPT/HCPCS: 73080 ==

== ENCOUNTER 2024-12-11 10:03 | Outpatient (REF) | payer MEDICAID, SELFPAY ==
--- OUTSIDE RECORDS SUMMARY | 2024-12-15 11:26 | XMS_ITS | Encounter Summary ---
Author Organization [employer] Address [address] [facility] [address] [place] [address] Care Team Providers Care Divisional Human Resources Director Name Role Phone Brianna Perez Primary Care Provider [phone] Reason for Visit * Reason Comments Med Refill Encounter Details Date Type Department Care Team ([facility] st Contact Info) Description 03/25/2024 Refill [facility] & PEDS [address] [place], [place] [phone] Brianna Perez ANP [address] [place] [address] Anxiety Social History Tobacco Use Types Packs/Day Years Used Date Smoking Tobacco: Every Day Cigarettes Passive Smoke Exposure: Current Smokeless Tobacco: Current Depression Answer Date Recorded Patient Health Questionnaire-9 Score 8 03/22/2022 Housing Stability Answer Date Recorded What is your housing situation today? I have maxim [facility]ina 02/08/[address] you li ve. Do you have problems with any of the following? None of the above 02/08/2023 Food Insecurity Answer Date Recorded Within the past 12 months, y ou worried that your food would run out before you got money to buy more: Never True 02/08/2023 Within the past 12 months,th e food you bought just didn't last and you didn't have enough money to get more: Never True Transportation Answer Date Recorded In the past 12 months, has l ack of transportation kept you from medical appts, meetings, work or from getting things needed for daily living? No 02/08/2023 Utilities Answer Date Recorded In the past 12 months, has t he electric, gas, oil or water company threatened to shut off services in your home? No 02/08/2023 Depression Answer Date Recorded Patient Health Questionnaire-2 Score 2 03/22/2022 Comments Unknown Sex and Gender Information Value Date Recorded Sex Assigned at Female 02/12/2022 10:17 AM EDT Legal Sex Female 10:17 AM EDT Gender Identity Female 02/12/2022 10:17 AM EDT Sexual Orientation Straight 02/12/2022 10 :17 AM EDT documented as of this encounter Plan of Treatment Upcoming Encounters Date Type Department Care Team (Late st Contact Info) Description 12/15/2024 11:30 AM EDT Office Visit [facility] [address] [place] [address] Brianna Perez ANP [address] [place] [address] 12/16/2024 2:45 PM EDT Clinical Support [facility]EDS [address] [place] [address] Katie Dixon, RN [address] [place] [address] documented as of this encounter Visit Diagnoses Diagnosis Anxiety Anxiety state, unspecified documented in this encounter Additional Health Concerns Assessment Noted Time PHQ-9 Depression Total Score: 8 03/22/20 22 1:32 PM EST documented as of this encounter Care Teams Divisional Human Resources Director Relationship Specialty Start Date End Date Brianna Perez ANP [address] [place] [address] PCP - General Family Medicine 06/22/21 documented as of this encounter
--- OUTSIDE RECORDS SUMMARY | 2024-12-15 11:26 | XMS_ITS | Encounter Summary ---
Author Organization [employer] Address [address] [facility] 7t [place] [address] Care Team Providers Care Publications Designer Name Role Phone PerezBrianna Primary Care Provider [phone] Reason for Visit * Reason Comments Med Refill Encounter Details Date Type Department Care Team ([facility] st Contact Info) Description 12/30/2023 Refill [facility] MED [facility] PEDS [address] [place], [place] [phone] Alecia Garcia MD [address] [place] [address] Anxiety Social History Tobacco Use Types Packs/Day [...] Description 12/15/2024 11:30 AM EDT Office Visit [facility] [address] [place] [address] Brianna Perez ANP [address] [place] [address] 12/16/2024 2:45 PM EDT Clinical Support [facility] [address] [place] [address] Katie Dixon, RN [address] [place] [address] documented as of this encounter Visit Diagnoses Diagnosis Anxiety Anxiety state, unspecified documented in this encounter Additional Health Concerns Assessment Noted Time PHQ-9 Depression Total Score: 8 03/22/20 22 1:32 PM EST documented as of this encounter Care Teams Publications Designer Relationship Specialty Start Date End Date Brianna Perez ANP [address] [place] [address] PCP - General Family Medicine 06/22/21 documented as of this encounter
--- OUTSIDE RECORDS SUMMARY | 2024-12-15 11:26 | XMS_ITS | Encounter Summary ---
Author Organization [employer] Address [address] [facility] 7t [place] [address] Care Team Providers Care Airline Ticket Agent Name Role Phone Brianna Perez Primary Care Provider [phone] Encounter Details Date Type Department Care Team ([facility] st Contact Info) Description 10/15/2024 Orders Only [facility] MED[facility]INE [address] [place] [address] Brianna Perez ANP [address] [place] [address] Social History Tobacco Use Types Packs/Day Years [...] Description 12/15/2024 11:30 AM EDT Office Visit [facility] [address] [place] [address] Brianna Perez ANP [address] [place] [address] 12/16/2024 2:45 PM EDT Clinical Support [facility] & PEDS [address] [place] [address] Katie Dixon, MECHELLE [address] [place] [address] documented as of this encounter Goals Goal Patient Goal Type Associated Problems Recent Progress Patient-Stated? Author Take your medication every day Lifestyle No Max Garvey, RN documented as of this encounter Visit Diagnoses Not on filedocumented in this encounter Additional Health Concerns Assessment Noted Time PHQ-9 Depression Total Score: 24 025 3:05 PM EDT documented as of this encounter Care Teams Airline Ticket Agent Relationship Specialty Start Date End Date Brianna Perez ANP [address] [place] [address] PCP - General Family Medicine 06/22/21 documented as of this encounter
--- OUTSIDE RECORDS SUMMARY | 2024-12-15 11:26 | XMS_ITS | Encounter Summary ---
Author Organization [employer] Address [address] [facility] 7t [place] [address] Care Team Providers Care Grades 1 Through 5 Teacher Name Role Phone Brianna Perez CHE Primary Care Provider [phone] Encounter Details Date Type Department Care Team ([facility] st Contact Info) Description 10/30/2024 Results Follow-Up [facility] [address] [place] [address] Dorota Blakely NP [address] [place] [address] XR Elbow 3+ Views Left Social History Tobacco Use Types Packs/Day Years [...] 11:30 AM EDT Office Visit [facility] [address] [place] [address] Brianna Perez ANP [address] [place] [address] 12/16/2024 2:45 PM EDT Clinical Support [facility] [address] [place] [address] Katie Dixon RN [address] [place] [address] documented as of this encounter Goals Goal Patient Goal Type Associated Problems Recent Progress Patient-Stated? Author Take your medication every day Lifestyle No Max Garvey, RN documented as of this encounter Visit Diagnoses Not on filedocumented in this encounter Additional Health Concerns Assessment Noted Time PHQ-9 Depression Total Score: 24 025 3:05 PM EDT documented as of this encounter Care Teams Grades 1 Through 5 Teacher Relationship Specialty Start Date End Date Brianna Perez ANP [address] [place] [address] PCP - General Family Medicine 06/22/21 documented as of this encounter
--- OUTSIDE RECORDS SUMMARY | 2024-12-15 11:26 | XMS_ITS | Encounter Summary ---
Author Organization [employer] Address [address] [facility] [address] [place] [address] Care Team Providers Care Pest Controller Name Role Phone Brianna Perez Primary Care Provider [phone] Reason for Visit * Reason Onset Date Comments Appointment Request 06/12/2024 Encounter Details Date Type Department Care Team ([facility] st Contact Info) Description 06/12/2024 Telephone [facility] MEDICINE [address] [place] [address] Brianna Perez ANP [address] [place] [address] Appointment Request Social History Tobacco Use Types Packs/Day Years [...] the past 12 months, has t he [employer], gas, oil or water [employer] threatened to shut off services in your home? No 02/08/2023 Depression Answer Date Recorded Patient Health Questionnaire-2 Score 2 03/22/2022 Comments Unknown Sex and Gender Information Value Date Recorded Sex Assigned at Female 02/12/2022 10:17 AM EDT Legal Sex Female 10:17 AM EDT Gender Identity Female 02/12/2022 10:17 AM EDT Sexual Orientation Straight 02/12/2022 10 :17 AM EDT documented as of this encounter Miscellaneous Notes * Telephone Encounter - Connie Greene - 06/12/2024 9:10 AM EST Tc from pt requesting to r/s CARDIOGRAPHER visit. Pt stated she takes public transportation and was unable tomake it on time. Contact pt at [phone] documented in this encounter Plan of Treatment Upcoming Encounters Date Type Department Care Team (Late st Contact Info) Description 12/15/2024 11:30 AM EDT Office Visit [facility] [address] [place] [address] Brianna Perez ANP [address] [place] [address] 12/16/2024 2:45 PM EDT Clinical Support [facility]EDS [address] [place] [address] Katie Dixon, RN [address] [place] [address] documented as of this encounter Visit Diagnoses Not on filedocumented in this encounter Additional Health Concerns Assessment Noted Time PHQ-9 Depression Total Score: 8 03/22/20 1:32 PM EST documented as of this encounter Care Teams Pest Controller Relationship Specialty Start Date End Date Brianna Perez ANP [address] [place] [address] PCP - General Family Medicine 06/22/21 documented as of this encounter
--- OUTSIDE RECORDS SUMMARY | 2024-12-15 11:26 | XMS_ITS | Encounter Summary ---
Author Organization [employer] Address [address] [facility] [address] [place] [address] Care Team Providers Care Video Game Creator Name Role Phone Brianna Perez Primary Care Provider [phone] Reason for Visit * Reason Comments Med Refill Encounter Details Date Type Department Care Team (Late st Contact Info) Description 10/21/[address] [facility] MED[facility]INE [address] [place] [address] Brianna Perez ANP [address] [place] [address] Anxiety Social History Tobacco Use Types Packs/Day [...] Description 12/15/2024 11:30 AM EDT Office Visit [facility] [address] [place] [address] Brianna Perez ANP [address] [place] [address] 12/16/2024 2:45 PM EDT Clinical Support [facility]EDS [address] [place], [place] [phone] Katie Dixon, MECHELLE [address] [place] [address] documented as of this encounter Visit Diagnoses Diagnosis Anxiety Anxiety state, unspecified documented in this encounter Additional Health Concerns Assessment Noted Time PHQ-9 Depression Total Score: 8 03/22/20 22 1:32 PM EST documented as of this encounter Care Teams Video Game Creator Relationship Specialty Start Date End Date Brianna Perze ANP [address] [place] [address] PCP - General Family Medicine 06/22/21 documented as of this encounter
--- OUTSIDE RECORDS SUMMARY | 2024-12-15 11:26 | XMS_ITS | Clinical Summary ---
Author Organization [employer] Address [address] [facility] [address] [place] [address] Care Team Providers Care House Builder Name Role Phone Fred Dykes CHE Primary Care Provider Allergies No known active allergies Medications * [...] for smoking cessation. 100 lozenge 024 Active oxyCODONE (Roxicodone) 5 MG immediate release tabletIndications :Closed fracture of left foot with routine healing, subsequent encounter Take 1 tablet (5 mg) by mouth every 6 (six) hours if needed for severe pain. 20 tablet 024 Active hydroCHLOROthiazi de (Microzide) 12.5 MG capsuleIndication [...] hours for 7 days. 14 Film 025 Active prazosin (Minipress) 2 MG capsuleIndication s:Nightmares TAKE 1 CAPSULE BY MOUTH DAILY AT BEDTIME 90 capsule 1 025 Active Blood Pressure kitIndications:Es sential hypertension 1 each 2 times daily. 1 kit 024 2024 prazosin (Minipress) 2 MG capsuleIndication s:Nightmares TAKE 1 CAPSULE BY MOUTH EVERY DAY AT BEDTIME 90 capsule 1 025 2024 Discontinued Active Problems Problem Noted Date Diagnosed Date [...] organization. Date Type Department Care Team Description 11/27/2024 Telephone [facility] [address] [place] [address] Katie Dixon RN 11/27/2024 Travel 11/22/2024 Refill [facility] [address] [facility] [place] [address] Fred Dykes ANP Nightmares 10/30/2024 Results Follow-Up [facility] [address] [facility] [place] [address] Dorota Blakely NP XR Elbow 3+ Views Left 10/30/2024 Orders Only [facility] External Provider, [facility] 10/19/2024 Refill [facility] [address] [facility] [place] [address] Shonna Reveles MD Opioid type dependence, continuous (CMS/[facility]) 10/15/2024 2:15 PM EDT Clinical Support [facility] [address] [facility] [place] [address] Max Garvey RN Uncomplicated opioid dependence ([facility]) (Primary Dx) 10/15/2024 Orders Only [facility] [address] [facility] [place] [address] Fred Dykes ANP 10/15/2024 Refill [facility] [address] [place] [address] Max Garvey RN Anxiety; Mood disorder (CMS/HCC) 10/15/2024 Travel 10/14/2024 Telephone [facility] [address] [facility] [place] [address] Fred Dykes ANP Referral 10/14/2024 Travel 10/13/2024 Orders Only [facility] External Provider, [facility] 10/13/2024 Refill [facility] [address] [facility] [place] [address] Shonna Reveles MD Opioid type dependence, continuous (CMS/HCC) 10/08/2024 Telephone [facility] [address] [place] [address] Shonna Reveles MD 10/08/2024 Travel 10/02/2024 Travel 10/02/2024 Telephone [facility] [address] [place] [address] Katie Dixon RN SIDE PANEL HANGER 09/29/2024 Refill [facility] [address] [place] [address] Shonna Reveles MD Opioid type dependence, continuous (CMS/HCC) 09/28/2024 1:00 PM EDT Clinical Support [address] [place] [address] Max Garvey RN Uncomplicated opioid dependence (CMS/HCC) 09/28/2024 11:00 AM EDT Telemedicine [address] [address] Fred Dykes ANP Uncomplicated opioid dependence (CMS/HCC) (Primary Dx); Anxiety; Long-term current use of benzodiazepine; Essential hypertension; Mood disorder (CMS/HCC); Tobacco dependence; Postoperative hypothyroidism; Prediabetes 09/28/2024 Travel 09/25/2024 Refill [facility] [address] [place] [address] Max Garvey RN Opioid type dependence, continuous (CMS/HCC) 09/24/2024 1:45 PM EDT Office Visit [address] [address] Shonna Reveles MD Opioid type dependence, continuous (CMS/HCC) (Primary Dx); Mood disorder (CMS/HCC) 09/24/2024 Orders Only [facility] [address] [place] [address] Fred Dykes ANP 09/24/2024 Refill [facility] [address] [place] [address] Katie Dixon, MECHELLE Anxiety 09/24/2024 Telephone [facility] [address] [place] [address] Fred Dykes ANP Med Refill 09/24/2024 Travel 09/18/2024 10:30 AM EDT Clinical Support [facility] [address] [place] [address] Max Garvey RN Opioid dependence, uncomplicated (CMS/HCC) [F11.20] 09/18/2024 Refill [facility] [address] [place] [address] Shonna Reveles MD Uncomplicated opioid dependence (CMS/HCC) 09/18/2024 Travel 09/17/2024 2:45 PM EDT Office Visit [facility] [address] [place] [address] Shonna Reveles MD Uncomplicated opioid dependence (CMS/HCC) (Primary Dx) 09/17/2024 1:00 PM EDT Office Visit [facility] [address] [place] [address] Sayda Prince RN Opioid use 09/17/2024 Travel from Last 3 Months Immunizations Immunization Administration [...] your housing situation today? I have maxim sing 09/17/[address] you li [...] Description 12/15/2024 11:30 AM EDT Office Visit [facility] [address] [place] [address] Fred Dykes, ANP [address] [place] [address] 12/16/2024 2:45 PM EDT Clinical Support [facility] [address] [place] [address] Katie Dixon, RN [address] [place] [address] Health Maintenance Due Date Last Done Comments [...] medication every day Lifestyle No Max Garvey, director of hotel operations Procedure Name Priority Date/Time Associated Diagnosis Comments XR ELBOW 3+ VIEWS LEFT Routine 10/30/2024 11:55 AM EDT POCT TOMAS-14 URINE DRUG SCREEN Routine 10/15/2024 10:51 AM EDT Uncomplicated opioid dependence (CMS/HCC) XR RIBS 3 VIEWS LEFT W CHEST Routine 10/13/2024 3:45 PM EDT XR ELBOW 1-2 VIEWS LEFT Routine 10/13/2024 2:58 PM EDT POCT TOMAS-14 URINE DRUG SCREEN Routine 09/17/2024 2:12 PM EDT Uncomplicated opioid dependence (CMS/HCC) POCT GLYCATED HEMOGLOBIN, TOTAL Routine 07/26/2023 1:32 PM EDT Hyperglycemia from Last 3 Months or Most Recently Relevant to Health Maintenance Results * XR Elbow 3+ Views Left (10/30/2024 11:55 AM EDT) Anatomical Region Laterality Modality Upper Extremities, Elbow Left Radiogr aphic Imaging 10/30/2024 11:5 5 AM EDT Narrative 10/30/2024 1:13 PM EDT [facility] [address] [place] [address] XRay Report Signed Patient: Ivelisse Chung MR#: [id number] : 1975 Acct:[id number] Age/Sex: 48 / F ADM Date: 10/30/24 Loc: [facility] Attending Dr: Genaro Villagran PA-C Ordering Physician: Genaro Villagran PA-C Date of Service: 10/30/24 Procedure(s): XR elbow LT min 3V Accession Number(s): [id number] cc: Genaro Villagran PA-C; FRED DYKES NP EXAMINATION: XR ELBOW, LEFT CLINICAL INFORMATION: M25.522 - Pain in left elbow COMPARISON: None available. TECHNIQUE: AP, lateral, and oblique views of the left elbow. FINDINGS: On the oblique view, there is a cortical step-off raising question of a radial head fracture, however there is no joint effusion. There are no degenerative changes. XR/XR elbow LT min 3V IMPRESSION: Possible radial head fracture. If there is clinical concern, consider follow-up in 7-10 days. Electronically signed by: Linden Hood MD 10/30/2024 01:10 PM EDT Dictated By: Linden Hood MD Signed By: <Electronically signed by Linden Hood MD in OV> 10/30/24 1310 DD/ 1155 TD/TT: 10/30/24 1300 Environmental Services Project Manager: Procedure Note Donotuseinterpreter, Image - 10/30/2024 [facility] [address] [place] [address] XRay Report Signed Patient: Ivelisse ChungMR#: [id number] 379 : 1975Acct:[id number] Age/Sex: 48 / FADM Date: 10/30/24 Loc: MALACHI Attending Dr: Genaro Villagran PA-C Ordering Physician: Genaro Villagran PA-C Date of Service: 10/30/24 Procedure(s): XR elbow LT min 3V Accession Number(s): [id number] cc: Genaro Villagran PA-C; FRED DYKES NP EXAMINATION: XR ELBOW, LEFT CLINICAL INFORMATION: M25.522 - Pain in left elbow COMPARISON: None available. TECHNIQUE: AP, lateral, and oblique views of the left elbow. FINDINGS: On the oblique view, there is a cortical step-off raising question of a radial head fracture, however there is no joint effusion. There are no degenerative changes. XR/XR elbow LT min 3V IMPRESSION: Possible radial head fracture. If there is clinical concern, consider follow-up in 7-10 days. Electronically signed by: Linden Hood MD 10/30/2024 01:10 PM EDT RP Dictated By: Linden Hood MD Signed By: <Electronically signed by Linden Hood MD in OV> 10/30/24 1310 DD/ 1155 TD/TT: 10/30/24 1300 Environmental Services Project Manager: [facility] External Provider IMG XR PROCEDURES Final Result * (ABNORMAL) POCT TOMAS-14 Urine Drug Screen [...] procedure / Unknown 10/15/2024 10:51 AM EDT Chito Perez MD POINT OF CARE TEST ENTER/EDIT OR DERABLES Final Result * XR Ribs 3 Views Left w/ Chest (10/13/2024 3:45 PM EDT) Anatomical Region Laterality Modality Radiographic Radha ging 10/13/2024 3:4 5 PM EDT Narrative 10/13/2024 4:14 PM EDT [address] [address] XRay Report Signed Patient: Ivelisse Chung MR#: [id number] 379 : 1975 Acct:[id number] Age/Sex: 48 / F ADM Date: 10/13/24 Loc: HO.ED Attending Dr: Ordering Physician: Corina Serrano CNP Date of Service: 10/13/24 Procedure(s): XR ribs LT min 3V w CXR1V Accession Number(s): [id number] cc: Corina Serrano CNP; FRED DYKES NP [...] 10/13/24 1610 DD/ 1545 TD/TT: 10/13/24 1600 Environmental Services Project Manager: Procedure Note Donotuseinterpreter, Image - 10/13/[address] [address] XRay Report Signed Patient: Ivelisse ChungMR#: [id number] : 1975Acct:[id number] Age/Sex: 48 / FADM Date: 10/13/24 Loc: HO.ED Attending Dr: Ordering Physician: Corina Serrano CNP Date of Service: 10/13/24 Procedure(s): XR ribs LT min 3V w CXR1V Accession Number(s): [id number] cc: Corina Serrano CNP; FRED DYKES NP [...] Linden Hood MD 10/13/2024 04:10 PM EDT RP Dictated By: Linden Hood MD Signed By: <Electronically signed by Linden Hood MD in OV> 10/13/24 1610 DD/ 1545 TD/TT: 10/13/24 1600 Environmental Services Project Manager: [facility] External Provider IMG XR PROCEDURES Final Result * XR Elbow 1-2 Views Left (10/13/2024 2:58 PM EDT) Anatomical Region Laterality Modality Upper Extremities, Elbow Left Radiogr aphic Imaging 10/13/2024 2:58 PM EDT Narrative 10/13/2024 4:10 PM EDT [address] [address] XRay Report Signed Patient: Ivelisse Chung MR#: [id number] 379 : 1975 Acct:[id number] Age/Sex: 48 / F ADM Date: 10/13/24 Loc: HO.ED Attending Dr: Ordering Physician: Corina Serrano CNP Date of Service: 10/13/24 Procedure(s): XR elbow LT 2V Accession Number(s): [id number] cc: Corina Serrano CNP; FRED DYKES MARKETING BUSINESS ANALYST EXAMINATION: XR ELBOW, LEFT CLINICAL INFORMATION: fall, [...] 10/13/24 1607 DD/ 1458 TD/TT: 10/13/24 1600 Environmental Services Project Manager: Procedure Note Donotuseinterpreter, Image - 10/13/[address] [address] XRay Report Signed Patient: Ivelisse Chung#: [id number] : 1975Acct:[id number] Age/Sex: 48 / FADM Date: 10/13/24 Loc: .ED Attending Dr: Ordering Physician: Corina Serrano CNP Date of Service: 10/13/24 Procedure(s): XR elbow LT 2V Accession Number(s): [id number] cc: Corina Serrano CNP; FRED DYKES MARKETING BUSINESS ANALYST EXAMINATION: XR ELBOW, LEFT CLINICAL INFORMATION: fall, [...] 10/13/24 1607 DD/ 1458 TD/TT: 10/13/24 1600 Environmental Services Project Manager: [facility] External Provider IMG XR PROCEDURES Final Result * POCT HGB A1C (07/26/2023 1:32 PM EDT) Hemoglobin A1C 5.9 4.0 - 6.0 % QC Media Lot # [id number] Lot# Expiration Date [id number] Blood 07/26/2023 1:32 PM EDT Fred Dykes ANP POINT OF CARE TEST ENTER/EDIT OR DERABLES Final Result from Last 3 Months or Most Recently Relevant to Health Maintenance Insurance [employer] Care Teams House Builder Relationship Specialty Start Date End Date Fred Dykes ANP [address] [place] [address] PCP - General Family Medicine 06/22/21
== END 2024-12-11 10:04 | disposition home or self-care (01) ==
LOC: HO.HOSX 10:03
PROVIDERS: Visit Provider Physician Assistant
DX: Z13.89 Encounter for screening for other disorder (principal)